=== PATIENT | female | born 1990 | race African-American/Black ===

== ENCOUNTER 2018-01-17 04:06 | Emergency (ER) | payer OTHER ==
[~2018-01-17] VITALS: Ht 172.7 cm; Wt 149.7 kg
--- NOTE | 2018-01-17 04:28 | PHYS DOC ---
Adult General Chief Complaint Chief Complaint: ABDOMINAL PAIN HPI HPI Patient is a 27-year-old female who presents with complaint of lower abdominal cramping and vaginal bleeding. Patient states that she started spotting on the of this month and was having some mild cramping at that time but then earlier this evening, she states that she started with a heavy flow with severe abdominal cramping that she rates at a 10 out of 10. Patient states that her last menstrual cycle was on December 19. She indicates that it is possible she could be . She states that nothing worsens or improves her symptoms. Patient also indicates that she had a total of 6 episodes of vomiting this evening. She denies any diarrhea and states that she has been having normal bowel movements. She denies any chest pain or shortness breath. She also denies any fever. Review of Systems Review of Systems Constitutional: Denies fever or chills [] Respiratory: Denies cough or shortness of breath [] Cardiovascular: Denies chest pain[] GI: Complains of lower abdominal cramping with nausea and vomiting[] : Reports vaginal bleeding[] Musculoskeletal: Denies back pain or joint pain [] All other systems were reviewed and found to be within normal limits, except as documented in this note. Current Medications Current Medications Current Medications Medications (Trade) Dose Ordered Sig/Katerin Start Time Stop Time Status Last Admin Dose Admin Fentanyl Citrate (Fentanyl 2ml Vial) 25 mcg PRN Q15MIN PRN 01/17/18 04:45 01/18/18 04:44 01/17/18 04:39 25 MCG Ondansetron HCl (Zofran) 4 mg 1X ONCE 01/17/18 04:45 01/17/18 04:46 DC 01/17/18 04:38 4 MG Sodium Chloride 1,000 ml @ 1,000 mls/hr Q1H 01/17/18 04:45 01/17/18 05:44 01/17/18 04:37 1,000 MLS/HR Allergies Allergies Allergies Coded Allergies Type Severity Reaction Last Updated Verified No Known Drug Allergies 01/17/18 No Physical Exam Physical Exam Constitutional: Well developed, well nourished, no acute distress, non-toxic appearance. [] HENT: Normocephalic, atraumatic, bilateral external ears normal, oropharynx moist, no oral exudates, nose normal. [] Eyes: PERRLA, EOMI, conjunctiva normal, no discharge. [] Neck: Normal range of motion, no tenderness, supple, no stridor. [] Cardiovascular:Heart rate regular rhythm, no murmur [] Lungs & Thorax: Bilateral breath sounds clear to auscultation [] Abdomen: Bowel sounds normal, soft, with suprapubic tenderness. [] Skin: Warm, dry, no erythema, no rash. [] Extremities: No tenderness, no cyanosis, no clubbing, ROM intact, no edema. [] Neurologic: Alert and oriented X 3, normal motor function, normal sensory function, no focal deficits noted. [] Current Patient Data Vital Signs Vital Signs Date Time Temp Pulse Resp B/P (MAP) Pulse Ox O2 Delivery O2 Flow Rate FiO2 01/17/18 04:39 12 01/17/18 04:15 97.8 84 163/82 (109) 98 Room Air 97.8 Lab Values Laboratory Tests Test 01/17/18 04:10 01/17/18 04:19 01/17/18 04:20 Urine Collection Type Unknown Urine Color Yellow Urine Clarity Clear Urine pH 5.5 Urine Specific [employer] [place] >=1.030 Urine Protein >=300 mg/dL (NEG-TRACE) Urine Glucose (UA) >=1000 mg/dL (NEG) Urine Ketones (Stick) Negative mg/dL (NEG) Urine Blood Large (NEG) Urine Nitrite Negative (NEG) Urine Bilirubin Negative (NEG) Urine Urobilinogen Dipstick 0.2 mg/dL (0.2 mg/dL) Urine Leukocyte Esterase Negative (NEG) Urine RBC Tntc /HPF (0-2) Urine WBC 1-4 /HPF (0-4) Urine Squamous Epithelial Cells Few /LPF Urine Bacteria Few /HPF (0-FEW) Urine Hyaline Casts Moderate /HPF Urine Mucus Mod /LPF POC Urine HCG, Qualitative Hcg negative (Negative) White Blood Count 8.0 x10^3/uL (4.0-11.0) Red Blood Count 4.91 x10^6/uL (3.50-5.40) Hemoglobin 14.5 g/dL (12.0-15.5) Hematocrit 43.2 % (36.0-47.0) Mean Corpuscular Volume 88 fL (79-100) Mean Corpuscular Hemoglobin 30 pg (25-35) Mean Corpuscular Hemoglobin Concent 34 g/dL (31-37) Red Cell Distribution Width 13.4 % (11.5-14.5) Platelet Count 274 x10^3/uL (140-400) Neutrophils (%) (Auto) 51 % (31-73) Lymphocytes (%) (Auto) 39 % (24-48) Monocytes (%) (Auto) 8 % (0-9) Eosinophils (%) (Auto) 2 % (0-3) Basophils (%) (Auto) 1 % (0-3) Neutrophils # (Auto) 4.1 x10^3uL (1.8-7.7) Lymphocytes # (Auto) 3.1 x10^3/uL (1.0-4.8) Monocytes # (Auto) 0.6 x10^3/uL (0.0-1.1) Eosinophils # (Auto) 0.1 x10^3/uL (0.0-0.7) Basophils # (Auto) 0.0 x10^3/uL (0.0-0.2) Sodium Level 136 mmol/L (136-145) Potassium Level 3.9 mmol/L (3.5-5.1) Chloride Level 100 mmol/L (98-107) Carbon Dioxide Level 28 mmol/L (21-32) Anion Gap 8 (6-14) Blood Urea Nitrogen 9 mg/dL (7-20) Creatinine 0.9 mg/dL (0.6-1.0) Estimated GFR (Cockcroft-Gault) 90.9 BUN/Creatinine Ratio 10 (6-20) Glucose Level 305 mg/dL (70-99) H Calcium Level 9.1 mg/dL (8.5-10.1) Total Bilirubin 0.2 mg/dL (0.2-1.0) Aspartate Amino Transferase (AST) 27 U/L (15-37) Alanine Aminotransferase (ALT) 51 U/L (14-59) Alkaline Phosphatase 113 U/L (46-116) Total Protein 7.9 g/dL (6.4-8.2) Albumin 3.8 g/dL (3.4-5.0) Albumin/Globulin Ratio 0.9 (1.0-1.7) L Laboratory Tests 01/17/18 04:20 Laboratory Tests 01/17/18 04:20 EKG EKG [] Radiology/Procedures Radiology/Procedures [] Course & Med Decision Making Course & Med Decision Making Pertinent Labs and Imaging studies reviewed. (See chart for details) [] Dragon Disclaimer Dragon Disclaimer This electronic medical record was generated, in whole or in part, using a voice recognition dictation system. Departure Departure Impression: Primary Impression: Dysmenorrhea Additional Impression: Nausea and vomiting Disposition: HOME, SELF-CARE Condition: STABLE Referrals: CYN GONZALEZ PA-C (PCP) Patient Instructions: Dysmenorrhea Additional Instructions: Take prescribed medication as directed and follow-up with your primary care provider in the next few days. Scripts Tramadol Hcl (TRAMADOL HCL) 50 Mg Tablet 50 MG PO Q6HRS PRN for PAIN, #12 TAB Prov: GEORGES BRIAN Jr. DO 01/17/18 Ondansetron Hcl (ZOFRAN) 4 Mg Tablet 4 MG PO PRN TID PRN for NAUSEA, #15 nausea/vomiting Prov: GEORGES BRIAN Jr. DO 01/17/18 Problem Qualifiers Additional Impression: Nausea and vomiting Vomiting type: unspecified Vomiting Intractability: non-intractable Qualified Codes: R11.2 - Nausea with vomiting, unspecified GEORGES BRIAN Jr. DO Jan 17, 2018 04:28
[2018-01-17 04:38] LABS: BILIRUBIN,URINE NEGATIVE (NEG); CLARITY,URINE CLEAR; COLOR,URINE YELLOW; NITRITE,URINE NEGATIVE (NEG); PH,URINE 5.5; PROTEIN,URINE >=300 mg/dL (NEG-TRACE); UROBILINOGEN,URINE 0.2 mg/dL (0.2 mg/dL)
[2018-01-17 04:41] LABS: BASO % 1 % (0-3); EOS # 0.1 x10^3/uL (0.0-0.7); EOS % 2 % (0-3); HEMATOCRIT 43.2 % (36.0-47.0); HEMOGLOBIN 14.5 g/dL (12.0-15.5); LYMPH # 3.1 x10^3/uL (1.0-4.8); LYMPH % 39 % (24-48); MEAN CORPUSCULAR HEMOGLOBIN 30 pg (25-35); MEAN CORPUSCULAR HGB CONC 34 g/dL (31-37); MEAN CORPUSCULAR VOLUME 88 fL (79-100); MONO # 0.6 x10^3/uL (0.0-1.1); MONO % 8 % (0-9); NEUT # 4.1 x10^3uL (1.8-7.7); NEUT % 51 % (31-73); PLATELET COUNT 274 x10^3/uL (140-400); RED BLOOD COUNT 4.91 x10^6/uL (3.50-5.40); RED CELL DISTRIBUTION WIDTH 13.4 % (11.5-14.5)
[2018-01-17] MEDS ORDERED: ONDANSETRON PF 4 MG/2 ML VIAL. IV ONE (04:45)
[2018-01-17] MEDS ORDERED: fentaNYL PF VIAL 100 MCG/2 ML VIAL IV PRN (04:45)
[2018-01-17] MEDS ORDERED: IV NORMAL SALINE 1000ML BAG 1,000 ML IV SCH (04:45)
[2018-01-17 04:51] LABS: CALCIUM 9.1 mg/dL (8.5-10.1); CREATININE 0.9 mg/dL (0.6-1.0); GFR 90.9; POTASSIUM 3.9 mmol/L (3.5-5.1)
[2018-01-17 04:53] LABS: BACTERIA,URINE FEW /HPF (0-FEW); HYALINE CASTS, URINE MODERATE /HPF; RBC,URINE TNTC /HPF (0-2); SQUAMOUS EPITHELIAL CELL,UR FEW /LPF
[2018-01-17 04:56] LABS: ALBUMIN 3.8 g/dL (3.4-5.0); ALBUMIN/GLOBULIN RATIO 0.9 (1.0-1.7); TOTAL BILIRUBIN 0.2 mg/dL (0.2-1.0); TOTAL PROTEIN 7.9 g/dL (6.4-8.2)
[2018-01-17] MEDS ORDERED: TRAM50TA PO (05:25)
[2018-01-17] MEDS ORDERED: ONDA4TAB7 PO (05:25)
[2018-01-17 05:30] VITALS: BP 156/74
== END 2018-01-17 05:30 | disposition home or self-care (01) ==
LOC: ER 04:06
DX: N94.6 Dysmenorrhea, unspecified (principal); R11.2 Nausea with vomiting, unspecified
CPT/HCPCS: 36415; 80053; 81001; 81025; 85025; 96361; 96374; 96375; 99284; J2405; J3010; J7030

== ENCOUNTER 2018-04-10 19:11 | Emergency (ER) | payer OTHER ==
[~2018-04-10] VITALS: Ht 172.7 cm; Wt 149.7 kg
[~2018-04-10 19:11] MED LIST: ONDA4TAB7 PO; TRAM50TA PO
[2018-04-10] MEDS ORDERED: IV NORMAL SALINE 1000ML BAG 1,000 ML IV ONE (19:30)
[2018-04-10] MEDS ORDERED: ONDANSETRON PF 4 MG/2 ML VIAL. IV ONE (19:30)
--- NOTE | 2018-04-10 19:32 | PHYS DOC ---
Past Medical History Past Medical History: Diabetes-Type II, Hypertension Past Surgical History: Other Additional Past Surgical Histo: R ovary removed Alcohol Use: Occasionally Drug Use: None Adult General Chief Complaint Chief Complaint: ABDOMINAL PAIN HPI HPI Patient is a 28 year old Female who presents with intermittent low mid abdominal sharp stabbing pain over the last 5 days. Patient states she had a bowel movement today that was normal for her. She has nausea but no vomiting. Patient's last visit. His March 13. States she ate potatoes today approximate 5 PM. Patient denies dysuria symptoms. She rates her pain 7 out of 10. 97.6, 79 heart rate, 176/80, 99% on room air. 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 Review of Systems Review of Systems Constitutional: Denies fever or chills [] Eyes: Denies change in visual acuity, redness, or eye pain [] HENT: Denies nasal congestion or sore throat [] Respiratory: Denies cough or shortness of breath [] Cardiovascular: No additional information not addressed in HPI [] GI: Lower abdominal pain, nausea. Denies vomiting, bloody stools or diarrhea [] : Denies dysuria or hematuria [] Musculoskeletal: Denies back pain or joint pain [] Integument: Denies rash or skin lesions [] Neurologic: Denies headache, focal weakness or sensory changes [] All other systems were reviewed and found to be within normal limits, except as documented in this note. Current Medications Current Medications Current Medications Medications (Trade) Dose Ordered Sig/Katerin Start Time Stop Time Status Last Admin Dose Admin Ondansetron HCl (Zofran) 4 mg 1X ONCE 04/10/18 19:30 04/10/18 19:31 DC 04/10/18 19:39 4 MG Sodium Chloride 1,000 ml @ 1,000 mls/hr 1X ONCE 04/10/18 19:30 04/10/18 20:29 04/10/18 19:39 1,000 MLS/HR Allergies Allergies Allergies Coded Allergies Type Severity Reaction Last Updated Verified No Known Drug Allergies 01/17/18 No Physical Exam Physical Exam Constitutional: Well developed, well nourished, no acute distress, non-toxic appearance. [] HENT: Normocephalic, atraumatic, bilateral external ears normal, oropharynx moist, no oral exudates, nose normal. [] Eyes: PERRLA, EOMI, conjunctiva normal, no discharge. [] Neck: Normal range of motion, no tenderness, supple, no stridor. [] Cardiovascular:Heart rate regular rhythm, no murmur [] Lungs & Thorax: Bilateral breath sounds clear to auscultation [] Abdomen: Bowel sounds normal, soft, mid lower tenderness, no masses, no pulsatile masses. [] Skin: Warm, dry, no erythema, no rash. [] Back: No tenderness, no CVA tenderness. [] Extremities: No tenderness, no cyanosis, no clubbing, ROM intact, no edema. [] Neurologic: Alert and oriented X 3, normal motor function, normal sensory function, no focal deficits noted. [] Psychologic: Affect normal, judgement normal, mood normal. [] Current Patient Data Vital Signs Vital Signs Date Time Temp Pulse Resp B/P (MAP) Pulse Ox O2 Delivery O2 Flow Rate FiO2 04/10/18 19:27 97.6 80 16 176/80 (112) 98 Room Air 97.6 Lab Values Laboratory Tests Test 04/10/18 19:15 04/10/18 19:24 04/10/18 19:26 Urine Collection Type Unknown Urine Color Yellow Urine Clarity Clear Urine pH 7.0 Urine Specific [place] >=1.030 Urine Protein 100 mg/dL (NEG-TRACE) Urine Glucose (UA) >=1000 mg/dL (NEG) Urine Ketones (Stick) Negative mg/dL (NEG) Urine Blood Trace (NEG) Urine Nitrite Negative (NEG) Urine Bilirubin Negative (NEG) Urine Urobilinogen Dipstick 1.0 mg/dL (0.2 mg/dL) Urine Leukocyte Esterase Negative (NEG) Urine RBC 11-20 /HPF (0-2) Urine WBC 20-40 /HPF (0-4) Urine Bacteria 0 /HPF (0-FEW) Urine Mucus Mod /LPF White Blood Count 9.4 x10^3/uL (4.0-11.0) Red Blood Count 4.74 x10^6/uL (3.50-5.40) Hemoglobin 14.1 g/dL (12.0-15.5) Hematocrit 41.2 % (36.0-47.0) Mean Corpuscular Volume 87 fL (79-100) Mean Corpuscular Hemoglobin 30 pg (25-35) Mean Corpuscular Hemoglobin Concent 34 g/dL (31-37) Red Cell Distribution Width 13.1 % (11.5-14.5) Platelet Count 291 x10^3/uL (140-400) Neutrophils (%) (Auto) 48 % (31-73) Lymphocytes (%) (Auto) 43 % (24-48) Monocytes (%) (Auto) 7 % (0-9) Eosinophils (%) (Auto) 1 % (0-3) Basophils (%) (Auto) 1 % (0-3) Neutrophils # (Auto) 4.5 x10^3uL (1.8-7.7) Lymphocytes # (Auto) 4.1 x10^3/uL (1.0-4.8) Monocytes # (Auto) 0.6 x10^3/uL (0.0-1.1) Eosinophils # (Auto) 0.1 x10^3/uL (0.0-0.7) Basophils # (Auto) 0.1 x10^3/uL (0.0-0.2) Sodium Level 139 mmol/L (136-145) Potassium Level 4.1 mmol/L (3.5-5.1) Chloride Level 102 mmol/L (98-107) Carbon Dioxide Level 27 mmol/L (21-32) Anion Gap 10 (6-14) Blood Urea Nitrogen 9 mg/dL (7-20) Creatinine 1.1 mg/dL (0.6-1.0) H Estimated GFR (Cockcroft-Gault) 71.6 BUN/Creatinine Ratio 8 (6-20) Glucose Level 273 mg/dL (70-99) H Calcium Level 8.9 mg/dL (8.5-10.1) Total Bilirubin 0.2 mg/dL (0.2-1.0) Aspartate Amino Transferase (AST) 17 U/L (15-37) Alanine Aminotransferase (ALT) 30 U/L (14-59) Alkaline Phosphatase 100 U/L (46-116) Total Protein 7.8 g/dL (6.4-8.2) Albumin 3.5 g/dL (3.4-5.0) Albumin/Globulin Ratio 0.8 (1.0-1.7) L Lipase 149 U/L (73-393) POC Urine HCG, Qualitative Hcg negative (Negative) Laboratory Tests 04/10/18 19:24 Laboratory Tests 04/10/18 19:24 EKG EKG [] Radiology/Procedures Radiology/Procedures [] Course & Med Decision Making Course & Med Decision Making Patient is a 28 year old Female who presents with intermittent low mid abdominal sharp stabbing pain over the last 5 days. Patient states she had a bowel movement today that was normal for her. She has nausea but no vomiting. Patient's last visit. His March 13. States she ate potatoes today approximate 5 PM. Patient denies dysuria symptoms. She rates her pain 7 out of 10. 97.6, 79 heart rate, 176/80, 99% on room air. 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 Skin is pink warm and dry. Abdomen is soft and slightly tender at the mid lower abdomen area. Patient denies any vaginal bleeding or abnormal vaginal discharge. Patient denies any chest pain or shortness of air or vomiting or diarrhea. Rate regular without murmur. Lungs are clear to auscultation in all lobes. Patient has no extremity swelling. Blood work is unremarkable. Urine shows infection. She'll be treated for urinary tract infection and to follow-up with her primary care as soon as possible. Dragon Disclaimer Dragon Disclaimer This electronic medical record was generated, in whole or in part, using a voice recognition dictation system. Departure Departure Impression: Primary Impression: Urinary tract infection Disposition: HOME, SELF-CARE Condition: STABLE Referrals: NO PCP (PCP) Patient Instructions: Urinary Tract Infection Additional Instructions: Take medications as prescribed. Follow-up with primary care. Scripts Cephalexin (KEFLEX) 500 Mg Capsule 1 CAP PO BID, #14 CAP Prov: COLT MONTES WIRE COILER 04/10/18 Problem Qualifiers Primary Impression: Urinary tract infection Urinary tract infection type: site unspecified Hematuria presence: with hematuria Qualified Codes: N39.0 - Urinary tract infection, site not specified ; R31.9 - Hematuria, unspecified COLT MONTES WIRE COILER Apr 10, 2018 19:32
[2018-04-10 19:35] LABS: BILIRUBIN,URINE NEGATIVE (NEG); CLARITY,URINE CLEAR; COLOR,URINE YELLOW; NITRITE,URINE NEGATIVE (NEG); PROTEIN,URINE 100 mg/dL (NEG-TRACE)
[2018-04-10 19:39] LABS: BASO # 0.1 x10^3/uL (0.0-0.2); BASO % 1 % (0-3); EOS # 0.1 x10^3/uL (0.0-0.7); EOS % 1 % (0-3); HEMATOCRIT 41.2 % (36.0-47.0); HEMOGLOBIN 14.1 g/dL (12.0-15.5); LYMPH # 4.1 x10^3/uL (1.0-4.8); LYMPH % 43 % (24-48); MEAN CORPUSCULAR HEMOGLOBIN 30 pg (25-35); MEAN CORPUSCULAR HGB CONC 34 g/dL (31-37); MEAN CORPUSCULAR VOLUME 87 fL (79-100); MONO # 0.6 x10^3/uL (0.0-1.1); MONO % 7 % (0-9); NEUT # 4.5 x10^3uL (1.8-7.7); NEUT % 48 % (31-73); PLATELET COUNT 291 x10^3/uL (140-400); RED BLOOD COUNT 4.74 x10^6/uL (3.50-5.40); RED CELL DISTRIBUTION WIDTH 13.1 % (11.5-14.5); WHITE BLOOD COUNT 9.4 x10^3/uL (4.0-11.0)
[2018-04-10 19:48] LABS: BACTERIA,URINE 0 /HPF (0-FEW); WBC,URINE 20-40 /HPF (0-4)
[2018-04-10 19:48] LABS: CALCIUM 8.9 mg/dL (8.5-10.1); CREATININE 1.1 mg/dL (0.6-1.0); GFR 71.6; POTASSIUM 4.1 mmol/L (3.5-5.1)
[2018-04-10 19:54] LABS: ALBUMIN 3.5 g/dL (3.4-5.0); ALBUMIN/GLOBULIN RATIO 0.8 (1.0-1.7); TOTAL BILIRUBIN 0.2 mg/dL (0.2-1.0); TOTAL PROTEIN 7.8 g/dL (6.4-8.2)
[2018-04-10] MEDS ORDERED: CEPH-264 PO (20:05)
[2018-04-10 20:13] VITALS: BP 174/90
== END 2018-04-10 20:18 | disposition home or self-care (01) ==
LOC: ER 19:11
DX: N39.0 Urinary tract infection, site not specified (principal); E11.9 Type 2 diabetes mellitus without complications; I10 Essential (primary) hypertension
CPT/HCPCS: 36415; 80053; 81001; 81025; 83690; 85025; 96374; 99284; J2405; J7030

== ENCOUNTER → 2018-05-22 | Outpatient (CLI) | payer OTHER ==
[~2018-05-22] MED LIST changes: +CEPH-264 PO
[2018-05-22 14:41] LABS: BASO # 0.1 x10^3/uL (0.0-0.2); BASO % 1 % (0-3); EOS # 0.1 x10^3/uL (0.0-0.7); EOS % 2 % (0-3); HEMATOCRIT 41.8 % (36.0-47.0); HEMOGLOBIN 14.3 g/dL (12.0-15.5); LYMPH # 3.8 x10^3/uL (1.0-4.8); LYMPH % 46 % (24-48); MEAN CORPUSCULAR HEMOGLOBIN 30 pg (25-35); MEAN CORPUSCULAR HGB CONC 34 g/dL (31-37); MEAN CORPUSCULAR VOLUME 86 fL (79-100); MONO # 0.4 x10^3/uL (0.0-1.1); MONO % 5 % (0-9); NEUT # 3.9 x10^3uL (1.8-7.7); NEUT % 47 % (31-73); PLATELET COUNT 301 x10^3/uL (140-400); RED BLOOD COUNT 4.83 x10^6/uL (3.50-5.40); RED CELL DISTRIBUTION WIDTH 13.1 % (11.5-14.5); WHITE BLOOD COUNT 8.4 x10^3/uL (4.0-11.0)
[2018-05-22 14:47] LABS: U PREG PATIENT NEGATIVE (NEG)
[2018-05-22 15:11] LABS: CALCIUM 8.3 mg/dL (8.5-10.1); CREATININE 0.8 mg/dL (0.6-1.0); GFR 103.3; POTASSIUM 3.9 mmol/L (3.5-5.1)
[2018-05-22 15:12] LABS: CHOLESTEROL/HDL RATIO 4.9
[2018-05-22 20:10] LABS: HEMOGLOBIN A1C 10.5 % (4.8-5.6)
== END | disposition home or self-care (01) ==
LOC: LAB 14:09
PROVIDERS: ATTEND Family Medicine
DX: Z00.00 Encounter for general adult medical examination without abnormal findings (principal); Z20.2 Contact with and (suspected) exposure to infections with a predominantly sexual mode of transmission; Z68.43 Body mass index [BMI] 50.0-59.9, adult; Z86.39 Personal history of other endocrine, nutritional and metabolic disease
CPT/HCPCS: 36415; 80048; 80061; 81025; 82043; 83036; 84443; 85025; 86592; 86703; 86705; 86709; 86803; 87340; 87491; 87591

== ENCOUNTER 2018-06-25 19:24 | Emergency (ER) | payer OTHER ==
[~2018-06-25] VITALS: Ht 172.7 cm; Wt 149.7 kg
[2018-06-25 20:15] VITALS: BP 164/72
--- NOTE | 2018-06-25 20:29 | PHYS DOC ---
Past Medical History Past Medical History: Diabetes-Type II, Hypertension Past Surgical History: Other Additional Past Surgical Histo: R ovary removed Alcohol Use: Occasionally Drug Use: None Adult General Chief Complaint Chief Complaint: CHEST WALL PAIN HPI HPI Patient is an obese 28 yo female w/ HTN and DM who presents with complaint of of chest wall pain for 1 week. Patient notes that 1 week ago she began having a dry cough, sinus pressure and green nasal drainage. She reports the symptoms resolved with mucinex, however the cough has persisted. She is now complaining of sharp pain in her chest w/ coughing and deep breaths. She denies having fevers, abdominal pain, bowel or bladder symptoms, or headache. She does admit to smoking and occasional marijuana use but denies etoh use. She has received a flu shot this year. Her LMP was in March, however she declined taking a test today because she is on the depot shot and is confident that she is not . Her primary care provider is Asuncion Parks. Patient recently had lab work completed which revealed HbA1c to be 10. Review of Systems Review of Systems Constitutional: Denies fever or chills [] Eyes: Denies change in visual acuity, redness, or eye pain [] HENT: Admits nasal congestion. Denies sore throat Respiratory: Admits cough. Admits feeling short of breath. Cardiovascular: Admits chest wall pain. Denies palpitations GI: Denies abdominal pain, nausea, vomiting, bloody stools or diarrhea [] : Denies dysuria or hematuria [] Musculoskeletal: Denies back pain or joint pain [] Integument: Denies rash or skin lesions [] Complete systems were reviewed and found to be within normal limits, except as documented in this note. Current Medications Current Medications Current Medications Medications (Trade) Dose Ordered Sig/[facility] Start Time Stop Time Status Last Admin Dose Admin Dexamethasone (Decadron) 10 mg 1X ONCE 06/25/18 21:00 06/25/18 21:00 DC 06/25/18 20:37 10 MG Allergies Allergies Allergies Coded Allergies Type Severity Reaction Last Updated Verified No Known Drug Allergies 01/17/18 No Physical Exam Physical Exam Constitutional: Obese, no acute distress, nontoxic appearing HENT: Normocephalic, atraumatic, bilateral external ears normal, oropharynx moist, no oral exudates, nose normal. [] Eyes: PERRLA, EOMI, conjunctiva normal, no discharge. [] Neck: Normal range of motion, no tenderness, supple Cardiovascular:Heart rate regular rhythm, no murmur [] Lungs & Thorax: Bilateral breath sounds clear to auscultation; hyperkeratosis present on neck and back. No pain w/ palpation of chest wall. Abdomen: Bowel sounds normal, soft, no tenderness Skin: Warm, dry, no erythema, no rash. [] Current Patient Data Vital Signs Vital Signs Date Time Temp Pulse Resp B/P (MAP) Pulse Ox O2 Delivery O2 Flow Rate FiO2 06/25/18 20:15 86 18 164/72 (102) 99 Room Air 06/25/18 19:25 97.9 97.9 EKG EKG [[@1931; HR 80, normal sinus rhythm]] Radiology/Procedures Radiology/Procedures ED preliminary read of CXR: No acute cardiopulmonary process. Course & Med Decision Making Course & Med Decision Making Patient is an obese 28 yo female who presents with complaint of chest wall pain when coughing or taking a deep breath. Patient reports she had cold symptoms last week and although they have mostly resolved the chest wall pain and dry cough have persisted. Patient's vitals were unremarkable. On physical exam lung sounds were present and clear bilaterally. EKG shows HR 80 normal sinus rhythm. Chest xray unremarkable for acute cardiopulmonary process. Discussed with patient that she likely has bronchitis. Also discussed with patient that a dose of dexamethasone will likely help decrease inflammation and help alleviate symptoms earlier, but that the steroid may cause her blood sugar to increase. Patient voiced understanding and stated that she would like to receive the dexamethasone. Gave the patient one dose and counseled her to continue to monitor her blood sugar and PO intake carefully. Dischaged patient home with azithromycin and inhaler for relief of symptoms. Patient stable for discharge with outpatient follow-up with PCP (Asuncion Parks). Discussed findings and plan with patient and family, who acknowledge understanding and agreement. Dragon Disclaimer Dragon Disclaimer This electronic medical record was generated, in whole or in part, using a voice recognition dictation system. Departure Departure Impression: Primary Impression: Bronchitis Disposition: 01 HOME, SELF-CARE Condition: STABLE Referrals: ANDREW PARKS MD (PCP) Patient Instructions: Acute Bronchitis, [id number] Scripts Albuterol Sulfate (Proair Hfa) 8.5 Gm Hfa.aer.ad 1 PUFF INH PRN Q6HRS PRN for WHEEZING, #1 INHALER Prov: TEMI PEREIRA DO 06/25/18 Azithromycin (ZITHROMAX) 250 Mg Tablet 1 PKG PO UD for bronchitis, #6 TAB Take 2 tablets on day 1 and then 1 tablet each day for the next 4 days as directed Prov: TEMI PEREIRA DO 06/25/18 TEMI PEREIRA DO Jun 25, 2018 20:29
[2018-06-25] MEDS ORDERED: ALBU2.5V8 INH (20:32)
[2018-06-25] MEDS ORDERED: AZIT250T PO (20:32)
[2018-06-25] MEDS: DEXAMETHASONE 4 MG TABLET PO ONE (20:37)
--- NOTE | 2018-06-25 21:08 | RAD ---
CHEST PA LATERAL CLINICAL INDICATION: Short of breath and cough today COMPARISON: None FINDINGS: Heart is normal in size. Prominent bilateral central bronchial markings. No focal consolidation. No pneumothorax or pleural effusion. Visualized bony thorax within normal limits. IMPRESSION: Findings suggests mild bronchitis. Electronically signed by: Jerrod Barbosa DO (06/25/2018 9:04 PM) [facility]
--- NOTE | 2018-06-26 01:17 | EKG ---
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
== END 2018-06-25 20:35 | disposition home or self-care (01) ==
LOC: ER 19:24
DX: J40 Bronchitis, not specified as acute or chronic (principal); L57.0 Actinic keratosis; E11.9 Type 2 diabetes mellitus without complications; I10 Essential (primary) hypertension; E66.9 Obesity, unspecified; Z68.43 Body mass index [BMI] 50.0-59.9, adult; F17.200 Nicotine dependence, unspecified, uncomplicated; F12.90 Cannabis use, unspecified, uncomplicated
CPT/HCPCS: 71046; 93005; 99283; J8540

== ENCOUNTER → 2018-12-30 | Outpatient (CLI) | payer OTHER ==
[~2018-12-30] MED LIST changes: +ALBU2.5V8 INH; +AZIT250T PO
[2018-12-31 00:07] LABS: HEMOGLOBIN A1C 10.3 % (4.8-5.6)
== END | disposition home or self-care (01) ==
LOC: LAB 09:21
PROVIDERS: ATTEND Family Medicine
DX: E11.65 Type 2 diabetes mellitus with hyperglycemia (principal)
CPT/HCPCS: 36415; 83036

== ENCOUNTER 2019-05-18 12:44 | Emergency (ER) | payer OTHER ==
[~2019-05-18] VITALS: Ht 172.7 cm; Wt 149.7 kg
[2019-05-18 13:00] VITALS: BP 168/79
--- NOTE | 2019-05-18 13:19 | RAD ---
Examination: 3 views of the left index finger COMPARISON: None available HISTORY: History of injury Findings/ impression: Subtle cortical step-off identified midportion of the distal phalanx of the second digit seen only on the lateral view could be artifactual or nondisplaced fracture. Correlate for point tenderness. The alignment of the PIP, DIP joints grossly appears unremarkable. Electronically signed by: Quinton Shoemaker MD (05/18/2019 1:16 PM) [id number]
[2019-05-18] MEDS ORDERED: HYDR-3164 PO (13:51)
[2019-05-18] MEDS ORDERED: VALA1000 PO (13:51)
--- NOTE | 2019-05-18 13:51 | PHYS DOC ---
Past Medical History Past Medical History: Diabetes-Type II, Hypertension Past Surgical History: Other Additional Past Surgical Histo: R ovary removed Alcohol Use: Occasionally Drug Use: None Adult General Chief Complaint Chief Complaint: FINGER INJURY HPI HPI Patient is a 29 year old female with history of diabetes type 2, hypertension, who presents to the ED today complaining of moderate pain to the left index finger that began this morning after she accidentally slammed her left index finger in the car door. Patient is right-handed. Patient states the pain is worse on touching the finger. Denies anything specifically relieving the pain. She is also requesting acyclovir for herpes break out. Review of Systems Review of Systems Constitutional: Denies fever or chills [] ] Female -herpes outbreak : Denies dysuria or hematuria [] Musculoskeletal: Left index finger injury Integument: Denies rash or skin lesions [] Neurologic: Denies headache, focal weakness or sensory changes [] All other systems were reviewed and found to be within normal limits, except as documented in this note. Allergies Allergies Allergies Coded Allergies Type Severity Reaction Last Updated Verified No Known Drug Allergies 01/17/18 No Physical Exam Physical Exam Constitutional: Well developed, well nourished, no acute distress, non-toxic appearance. [] Abdomen: Bowel sounds normal, soft, no tenderness, no masses, no pulsatile masses. [] Skin: Warm, dry, no erythema, no rash. [] Back: No tenderness, no CVA tenderness. [] Extremities: Distal end of the left index finger with slight swelling, the subungual hematoma on the left index finger proximal end approximately 20% right now. There is moderate tenderness on palpation of the distal end of the left index finger. Full range of motion to the left index finger MIP PIP and DIP joints. Adequate radius sensation to the left index finger. +2 left radial pulse. Cap refill less than 2 seconds the left index finger. Neurologic: Alert and oriented X 3, normal motor function, normal sensory function, no focal deficits noted. [] Psychologic: Affect normal, judgement normal, mood normal. [] Current Patient Data Vital Signs Vital Signs Date Time Temp Pulse Resp B/P (MAP) Pulse Ox O2 Delivery O2 Flow Rate FiO2 05/18/19 13:00 98.0 79 18 168/79 (108) 97 Room Air 98.0 EKG EKG [] Radiology/Procedures Radiology/Procedures []PROCEDURE: FINGER(S) LEFT Examination: 3 views of the left index finger COMPARISON: None available HISTORY: History of injury Findings/ impression: Subtle cortical step-off identified midportion of the distal phalanx of the second digit seen only on the lateral view could be artifactual or nondisplaced fracture. Correlate for point tenderness. The alignment of the PIP, DIP joints grossly appears unremarkable. Electronically signed by: Quinton Shoemaker MD (05/18/2019 1:16 PM) [id number] DICTATED and SIGNED BY: QUINTON SHOEMAKER MD DATE: 05/18/19 1316 Course & Med Decision Making Course & Med Decision Making Pertinent Labs and Imaging studies reviewed. (See chart for details) This is a 29-year-old female patient presenting to the ED today for left index finger pain. She accidentally slammed it in a car door. Left index finger x-rays interpreted by radiologist were noted for-subtle cortical step-off identified midportion of the distal phalanx of the second digit seen only on the lateral view could be artifactual or nondisplaced fracture. Correlate for point tenderness. Patient does have pain to this area being mentioned on x-ray. She was placed in a finger splint by the ED RN, neurovascular exam is intact. Ice elevation encouraged. Follow-up with orthopedic doctor.She was also given acyclovir for her herpes outbreak Dragon Disclaimer Dragon Disclaimer This electronic medical record was generated, in whole or in part, using a voice recognition dictation system. Departure Departure Impression: Primary Impression: Fracture of distal phalanx of index finger Additional Impression: Herpes simplex virus (HSV) infection of vagina Disposition: 01 HOME, SELF-CARE Condition: STABLE Referrals: NO PCP (PCP) ZONIA RODRÍGUEZ MD follow up in the next 2 days Patient Instructions: Finger Fracture (Phalangeal)-SportsMed Additional Instructions: You were evaluated in the emergency room for left index finger injury, your x- ray shows you could've broken this finger. Please contact the orthopedic doctor on your discharge paperwork in the course of this week and set up a follow-up appointment. Try to ice and elevate the extremity. Scripts Hydrocodone/Apap 5-325 (NORCO 5-325 TABLET) 1 Each Tablet 1 TAB PO Q6HRS, #20 TAB Prov: MUTUNGALUI [employer] 05/18/19 Valacyclovir Hcl (VALACYCLOVIR) 1,000 Mg Tablet 1 TAB PO DAILY, #7 TAB Prov: LUI RIVER APRN 05/18/19 Problem Qualifiers Primary Impression: Fracture of distal phalanx of index finger Encounter type: initial encounter Fracture type: closed Fracture alignment: nondisplaced Laterality: left Qualified Codes: S62.661A - Nondisplaced fracture of distal phalanx of left index finger, initial encounter for closed fracture LUI RIVER APRN May 18, 2019 13:51
== END 2019-05-18 14:04 | disposition home or self-care (01) ==
LOC: ER 12:44
DX: S62.661A Nondisplaced fracture of distal phalanx of left index finger, initial encounter for closed fracture (principal); A60.00 Herpesviral infection of urogenital system, unspecified; E11.9 Type 2 diabetes mellitus without complications; I10 Essential (primary) hypertension; Z98.890 Other specified postprocedural states; W23.0XXA Caught, crushed, jammed, or pinched between moving objects, initial encounter; Y93.89 Activity, other specified; Y92.89 Other specified places as the place of occurrence of the external cause; Y99.8 Other external cause status
CPT/HCPCS: 29130; 73140; 99284

== ENCOUNTER → 2019-08-12 | Outpatient (CLI) | payer OTHER ==
[~2019-08-12] MED LIST changes: +HYDR-3164 PO; +VALA10008 PO
[2019-08-12 08:26] LABS: BASO % 1 % (0-3); EOS # 0.1 x10^3/uL (0.0-0.7); EOS % 1 % (0-3); HEMATOCRIT 43.7 % (36.0-47.0); HEMOGLOBIN 14.7 g/dL (12.0-15.5); LYMPH # 3.2 x10^3/uL (1.0-4.8); LYMPH % 43 % (24-48); MEAN CORPUSCULAR HEMOGLOBIN 29 pg (25-35); MEAN CORPUSCULAR HGB CONC 34 g/dL (31-37); MEAN CORPUSCULAR VOLUME 85 fL (79-100); MONO # 0.5 x10^3/uL (0.0-1.1); MONO % 7 % (0-9); NEUT # 3.5 x10^3/uL (1.8-7.7); NEUT % 48 % (31-73); PLATELET COUNT 259 x10^3/uL (140-400); RED BLOOD COUNT 5.12 x10^6/uL (3.50-5.40); RED CELL DISTRIBUTION WIDTH 13.3 % (11.5-14.5); WHITE BLOOD COUNT 7.3 x10^3/uL (4.0-11.0)
[2019-08-12 09:00] LABS: ALBUMIN 3.2 g/dL (3.4-5.0); ALBUMIN/GLOBULIN RATIO 0.9 (1.0-1.7); CALCIUM 8.5 mg/dL (8.5-10.1); CREATININE 0.7 mg/dL (0.6-1.0); GFR 119.7; TOTAL BILIRUBIN 0.6 mg/dL (0.2-1.0); TOTAL PROTEIN 6.9 g/dL (6.4-8.2)
[2019-08-12 09:02] LABS: CHOLESTEROL/HDL RATIO 3.8
[2019-08-12 20:07] LABS: HEMOGLOBIN A1C 12.1 % (4.8-5.6)
== END | disposition home or self-care (01) ==
LOC: LAB 07:44
PROVIDERS: ATTEND Nurse Practitioner Gerontology
DX: E11.65 Type 2 diabetes mellitus with hyperglycemia (principal)
CPT/HCPCS: 36415; 80053; 80061; 83036; 85025

== ENCOUNTER → 2020-01-25 | Outpatient (CLI) | payer OTHER | END | disposition home or self-care (01) | LOC: LAB 10:04 | PROVIDERS: ATTEND Internal Medicine Pulmonary Disease | DX: Z20.828 Contact with and (suspected) exposure to other viral communicable diseases (principal) | CPT/HCPCS: U0003-CS ==

== ENCOUNTER 2020-02-01 15:09 | Emergency (ER) | payer OTHER ==
[~2020-02-01] VITALS: Ht 172.7 cm; Wt 150.0 kg
[2020-02-01] MEDS ORDERED: fentaNYL PF VIAL 100 MCG/2 ML VIAL IVP ONE (16:15)
--- NOTE | 2020-02-01 16:31 | PHYS DOC ---
Past Medical History Past Medical History: Diabetes-Type II, Hypertension Past Surgical History: Other Additional Past Surgical Histo: R ovary removed Smoking Status: Former Smoker Alcohol Use: Occasionally Drug Use: None General Adult EDM: Chief Complaint: BACK PAIN OR INJURY HPI: HPI: Patient is a 29 year old female who presents with for the last 2 to 3 days she states she has been having fatigue and bilateral upper and lower back pain. 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 She states that she does do some heavy lifting. She states there is no sharp shooting pain radiating from the pain down her legs. She is currently on her menstrual period. She states on Friday she had a negative cover test. She has a history of hypertension and diabetes and a right ovary removed. She states that she is not taking any medications. She states that the pain is worse with movement and lifting her arms. She states if she sits a certain way or if she lays down it is painful. There is tenderness all over her back bilaterally with palpation. There is focal bony spinal tenderness also. She states that sharp and shooting. She rates her pain a 10 out of 10. She is tearful. Patient denies loss of bowel bladder, numbness or tingling, focal weaknesses, dizziness, headache, fever, cough, abdominal pain, nausea, vomiting, diarrhea, dysuria symptoms, chest pain, shortness of air. Review of Systems: Review of Systems: Constitutional: Denies fever or chills. Fatigue. [] Eyes: Denies change in visual acuity. [] HENT: Denies nasal congestion or sore throat. [] Respiratory: Denies cough or shortness of breath. [] Cardiovascular: Denies chest pain or edema. [] GI: Denies abdominal pain, nausea, vomiting, bloody stools or diarrhea. [] : Denies dysuria. [] Musculoskeletal: Bilateral upper and lower back pain or joint pain. [] Integument: Denies rash. [] Neurologic: Denies headache, focal weakness or sensory changes. [] Endocrine: Denies polyuria or polydipsia. [] Lymphatic: Denies swollen glands. [] Psychiatric: Denies depression or anxiety. [] Heart Score: Risk Factors: Risk Factors: DM, Current or recent (<one month) smoker, HTN, HLP, family history of CAD, obesity. Risk Scores: Score 0 - 3: 2.5% MACE over next 6 weeks - Discharge Home Score 4 - 6: 20.3% MACE over next 6 weeks - Admit for Clinical Observation Score 7 - 10: 72.7% MACE over next 6 weeks - Early Invasive Strategies Current Medications: Current Medications Medications (Trade) Dose Ordered Sig/Katerin Start Time Stop Time Status Last Admin Dose Admin Fentanyl Citrate (Fentanyl 2ml Vial) 50 mcg 1X ONCE 02/01/20 16:15 02/01/20 16:16 DC Allergies: Allergies: Allergies Coded Allergies Type Severity Reaction Last Updated Verified No Known Drug Allergies 01/17/18 No Physical Exam: PE: Constitutional: Well developed, well nourished, no acute distress, non-toxic appearance. [] HENT: Normocephalic, atraumatic, bilateral external ears normal, oropharynx moist, no oral exudates, nose normal. [] Eyes: PERRLA, EOMI, conjunctiva normal, no discharge. [] Neck: Normal range of motion, no tenderness, supple, no stridor. [] Cardiovascular:Heart rate regular rhythm, no murmur [] Lungs & Thorax: Bilateral breath sounds clear to auscultation [] Abdomen: Bowel sounds normal, soft, no tenderness, no masses, no pulsatile masses. [] Skin: Warm, dry, no erythema, no rash. [] Back: Bilateral upper and lower tenderness, no CVA tenderness. [] Extremities: No tenderness, no cyanosis, no clubbing, ROM intact, no edema. [] Neurologic: Alert and oriented X 3, normal motor function, normal sensory function, no focal deficits noted. [] Psychologic: Affect normal, judgement normal, mood normal. [] Current Patient Data: Vital Signs: Vital Signs Date Time Temp Pulse Resp B/P (MAP) Pulse Ox O2 Delivery O2 Flow Rate FiO2 02/01/20 16:00 81 174/122 (139) 98 Room Air EKG: EK and read by Dr Carrera as Sinus Rhythm and no STEMI [] Radiology/Procedures: Radiology/Procedures: [] Impression: [facility] [address] [place] [address] IMAGING REPORT Signed PATIENT: YG HEMPHILL CACCOUNT: [id number] : 1990 LOCATION: ER AGE: 29 SEX: F EXAM STATUS: REG ER ORD. PHYSICIAN: COLT MONTES APRN REASON: Injury, PAIN PROCEDURE: LUMBAR SPINE MIN 4V EXAM: AP, lateral and lumbosacral spot views With a synovial of the lumbar spine DATE: 02/01/2020 5:41 PM INDICATION: Reason: Injury, PAIN / Spl. Instructions: / History: COMPARISON: No Prior FINDINGS: 5 nonrib-bearing lumbar-type vertebral bodies. Vertebral body heights are preserved. Disc heights are grossly preserved. On the oblique views, no definite pars defects are seen. No significant facet degenerative changes. No spondylolisthesis. IMPRESSION: 1. Negative acute fracture or subluxation. Electronically signed by: Aneudy Pride MD (02/01/2020 6:43 PM) DOUG DICTATED and SIGNED BY: ANEUDY PRIDE MD DATE: 02/01/20 1843 [facility] [address] [place], [place] [id number] IMAGING REPORT Signed PATIENT: YG HEMPHILL CACCOUNT: [id number] : 1990 LOCATION: ER AGE: 29 SEX: F EXAM STATUS: REG ER ORD. PHYSICIAN: COLT MONTES APRN REASON: Injury, PAIN PROCEDURE: THORACIC SPINE 3V Exam: Thoracic spine Date: 02/01/2020 5:41 PM CLINICAL HISTORY: Reason: Injury, PAIN / Spl. Instructions: / History: COMPARISON: None available. FINDINGS: AP and lateral/swimmers views of the thoracic spine submitted. There is severe superimposed artifact at the cervical thoracic junction on the lateral view per techniques. Exam shows preserved disc height throughout. Negative degenerative/proliferative changes. Negative compression fracture. Negative malalignment. Negative focal paraspinal line deviation/hematoma. IMPRESSION: Evaluation of the thoracic spine, particularly the upper thoracic spine is markedly limited by overlying structures or motion artifact. Within these constraints no acute fracture or subluxation. Electronically signed by: Aneudy Pride MD (02/01/2020 6:42 PM) DOUG DICTATED and SIGNED BY: ANEUDY PRIDE MD DATE: 02/01/20 184 Course & Med Decision Making: Course & Med Decision Making Pertinent Labs and Imaging studies reviewed. (See chart for details) See HPI. Alert and oriented x4. Ambulatory with a steady gait. Speaks in full complete sentences. Skin pink warm and dry. Moving all extremities equally with equal strengths. No saddle paresthesia. Blood work is unremarkable. Urinalysis shows no infection. Due to patient's symptoms and increased with movement this is likely musculoskeletal pain. Patient will be discharged with pain medication and muscle relaxer. [] Dragon Disclaimer: Dragon Disclaimer: This electronic medical record was generated, in whole or in part, using a voice recognition dictation system. Departure Departure Impression: Primary Impression: Back pain Qualified Codes: M54.9 - Dorsalgia, unspecified Disposition: HOME, SELF-CARE Condition: STABLE Referrals: NO PCP (PCP) Patient Instructions: Back Pain, Adult, Low Back Strain with Rehab-SportsMed Additional Instructions: Follow up with primary care provider. Take medications as prescribed and with food. Drink plenty of fluids. Remember this medication will make you sleepy so do not drive or drink with this medication. Scripts Orphenadrine Citrate (ORPHENADRINE CITRATE) 100 Mg Tablet.er 1 TAB PO BID, #14 TAB Prov: COLT MONTES APRN 02/01/20 Hydrocodone/Apap 5-325 (NORCO 5-325 TABLET) 1 Each Tablet 1 TAB PO PRN Q6HRS PRN for PAIN, #10 TAB 0 Refills Prov: COLT MONTES APRN 02/01/20 Ibuprofen (IBUPROFEN) 600 Mg Tablet 600 MG PO PRN Q6HRS PRN for INFLAMMATION, #20 TAB Prov: COLT MONTES APRN 02/01/20 Justicifation of Admission Dx: Justifications for Admission: Justification of Admission Dx: N/A COLT MONTES APRN Feb 01, 2020 16:31
[2020-02-01 17:16] LABS: ALBUMIN 3.3 g/dL (3.4-5.0); ALBUMIN/GLOBULIN RATIO 0.8 (1.0-1.7); CALCIUM 8.7 mg/dL (8.5-10.1); CREATININE 0.8 mg/dL (0.6-1.0); GFR 102.6; POTASSIUM 3.7 mmol/L (3.5-5.1); TOTAL BILIRUBIN 0.4 mg/dL (0.2-1.0); TOTAL PROTEIN 7.2 g/dL (6.4-8.2)
[2020-02-01] MEDS ORDERED: KETOROLAC 30 MG/ML VIAL. IVP ONE (17:45)
[2020-02-01] MEDS ORDERED: ORPHENADRINE CITRATE 60 MG/2 ML VIAL. IM ONE (17:45)
[2020-02-01] MEDS ORDERED: IV NORMAL SALINE 1000ML BAG 1,000 ML IV ONE (17:45)
[2020-02-01 18:12] LABS: BILIRUBIN,URINE NEGATIVE (NEG); CLARITY,URINE CLEAR; COLOR,URINE RED; NITRITE,URINE NEGATIVE (NEG); PH,URINE 8.5 (<5.0-8.0); PROTEIN,URINE 100 mg/dL (NEG-TRACE)
[2020-02-01 18:13] LABS: BACTERIA,URINE FEW /HPF (0-FEW); BASO # 0.1 x10^3/uL (0.0-0.2); BASO % 1 % (0-3); EOS # 0.1 x10^3/uL (0.0-0.7); EOS % 2 % (0-3); HEMATOCRIT 45.1 % (36.0-47.0); HEMOGLOBIN 15.1 g/dL (12.0-15.5); LYMPH # 2.6 x10^3/uL (1.0-4.8); LYMPH % 37 % (24-48); MEAN CORPUSCULAR HEMOGLOBIN 29 pg (25-35); MEAN CORPUSCULAR HGB CONC 34 g/dL (31-37); MEAN CORPUSCULAR VOLUME 87 fL (79-100); MONO # 0.4 x10^3/uL (0.0-1.1); MONO % 6 % (0-9); NEUT # 3.9 x10^3/uL (1.8-7.7); NEUT % 55 % (31-73); PLATELET COUNT 260 x10^3/uL (140-400); RBC,URINE TNTC /HPF (0-2); RED BLOOD COUNT 5.16 x10^6/uL (3.50-5.40); RED CELL DISTRIBUTION WIDTH 13.2 % (11.5-14.5); SQUAMOUS EPITHELIAL CELL,UR FEW /LPF
--- NOTE | 2020-02-01 18:45 | RAD ---
Exam: Thoracic spine Date: 02/01/2020 5:41 PM CLINICAL HISTORY: Reason: Injury, PAIN / Spl. Instructions: / History: COMPARISON: None available. FINDINGS: AP and lateral/swimmers views of the thoracic spine submitted. There is severe superimposed artifact at the cervical thoracic junction on the lateral view per techniques. Exam shows preserved disc height throughout. Negative degenerative/proliferative changes. Negative compression fracture. Negative malalignment. Negative focal paraspinal line deviation/hematoma. IMPRESSION: Evaluation of the thoracic spine, particularly the upper thoracic spine is markedly limited by overlying structures or motion artifact. Within these constraints no acute fracture or subluxation. Electronically signed by: Aneudy Nath MD (02/01/2020 6:42 PM) DOUG
--- NOTE | 2020-02-01 18:46 | RAD ---
EXAM: AP, lateral and lumbosacral spot views With a synovial of the lumbar spine DATE: 02/01/2020 5:41 PM INDICATION: Reason: Injury, PAIN / Spl. Instructions: / History: COMPARISON: No Prior FINDINGS: 5 nonrib-bearing lumbar-type vertebral bodies. Vertebral body heights are preserved. Disc heights are grossly preserved. On the oblique views, no definite pars defects are seen. No significant facet degenerative changes. No spondylolisthesis. IMPRESSION: 1. Negative acute fracture or subluxation. Electronically signed by: Aneudy Nath MD (02/01/2020 6:43 PM) DOUG
[2020-02-01 19:17] LABS: PROTHROMBIN TIME PATIENT 12.8 SEC (11.7-14.0)
[2020-02-01] MEDS ORDERED: ORPH100T PO (19:20)
[2020-02-01] MEDS ORDERED: HYDR-3164 PO (19:20)
[2020-02-01] MEDS ORDERED: IBUP-1007 PO (19:20)
[2020-02-01 19:30] VITALS: BP 151/88
--- NOTE | 2020-02-02 04:09 | EKG ---
[facility] [address] [place] [address] Test Date: 2020-02-01 Test Time: 16:53:29 Pat Name: YG HEMPHILL Department: Room: Gender: F Parliamentary Counsel: : 1990 Requested By: COLT MONTES Order Number: [id number] Reading MD: Measurements Intervals [place] Rate: 76 P: 40 [place]: 200 QRS: 25 QRSD: 86 T: 38 QT: 374 QTc: 425 Interpretive Statements SINUS RHYTHM NORMAL ECG RI6.02 No previous ECG available for comparison
== END 2020-02-01 19:34 | disposition home or self-care (01) ==
LOC: ER 15:09
DX: M54.5 Low back pain (principal); R53.83 Other fatigue; E11.9 Type 2 diabetes mellitus without complications; I10 Essential (primary) hypertension; Z87.891 Personal history of nicotine dependence; Z98.890 Other specified postprocedural states
CPT/HCPCS: 36415; 72072; 72110; 80053; 81001; 81025; 84484; 85025; 85610; 93005; 96372; 96374; 96375; 99285; J1885; J2360; J3010

== ENCOUNTER 2020-02-22 13:21 | Emergency (ER) | payer OTHER ==
[~2020-02-22] VITALS: Ht 172.7 cm; Wt 150.0 kg
[~2020-02-22 13:21] MED LIST changes: +IBUP-1007 PO; +ORPH100T PO
[2020-02-22] MEDS ORDERED: MUPI15CR8 TP (13:50)
[2020-02-22] MEDS ORDERED: CEPH-264 PO (13:50)
--- NOTE | 2020-02-22 13:50 | PHYS DOC ---
Past Medical History Past Medical History: Diabetes-Type II, Hypertension Past Surgical History: Other Additional Past Surgical Histo: R ovary removed Smoking Status: Current Every Day Smoker Alcohol Use: Occasionally Drug Use: None General Adult EDM: Chief Complaint: SKIN PROBLEM HPI: HPI: Patient is a 30 year old Female who presents with 1 week of a itchy open crusty blister like rash that are sporadic on face medial cheek and forehead and above the right lip. Patient also has spots on her bilateral buttocks and a couple on her arms. Her son has since gotten the same kind of rash. She denies any kind of fever, new lotions new oils new soaps for her or her son. She denies any new detergents. She denies having been out side or around weeds or anything. There is no swelling around the sore and they are not elevated. It does not look to be any drainage at this time. There is no cellulitis. No sores in the mouth. She denies any pain. She has a history of hypertension, diabetes, smoker. Review of Systems: Review of Systems: Constitutional: Denies fever or chills. [] Eyes: Denies change in visual acuity. [] HENT: Denies nasal congestion or sore throat. [] Respiratory: Denies cough or shortness of breath. [] Cardiovascular: Denies chest pain or edema. [] GI: Denies abdominal pain, nausea, vomiting, bloody stools or diarrhea. [] : Denies dysuria. [] Musculoskeletal: Denies back pain or joint pain. [] Integument: Generalized itchy rash. [] Neurologic: Denies headache, focal weakness or sensory changes. [] Endocrine: Denies polyuria or polydipsia. [] Lymphatic: Denies swollen glands. [] Psychiatric: Denies depression or anxiety. [] Heart Score: Risk Factors: Risk Factors: DM, Current or recent (<one month) smoker, HTN, HLP, family history of CAD, obesity. Risk Scores: Score 0 - 3: 2.5% MACE over next 6 weeks - Discharge Home Score 4 - 6: 20.3% MACE over next 6 weeks - Admit for Clinical Observation Score 7 - 10: 72.7% MACE over next 6 weeks - Early Invasive Strategies Allergies: Allergies: Allergies Coded Allergies Type Severity Reaction Last Updated Verified No Known Drug Allergies 01/17/18 No Physical Exam: PE: Constitutional: Well developed, well nourished, no acute distress, non-toxic appearance. [] HENT: Normocephalic, atraumatic, bilateral external ears normal, oropharynx moist, no oral exudates, nose normal. [] Eyes: PERRLA, EOMI, conjunctiva normal, no discharge. [] Neck: Normal range of motion, no tenderness, supple, no stridor. [] Cardiovascular:Heart rate regular rhythm, no murmur [] Lungs & Thorax: Bilateral breath sounds clear to auscultation [] Abdomen: Bowel sounds normal, soft, no tenderness, no masses, no pulsatile masses. [] Skin: Warm, dry, no erythema, generalized itchy, crusty rash to face, bilateral buttocks and bilateral arms that has spread over time. [] Back: No tenderness, no CVA tenderness. [] Extremities: No tenderness, no cyanosis, no clubbing, ROM intact, no edema. [] Neurologic: Alert and oriented X 3, normal motor function, normal sensory function, no focal deficits noted. [] Psychologic: Affect normal, judgement normal, mood normal. [] EKG: EKG: [] Radiology/Procedures: Radiology/Procedures: [] Course & Med Decision Making: Course & Med Decision Making Pertinent Labs and Imaging studies reviewed. (See chart for details) See HPI. Alert and oriented x4. Ambulatory with a steady gait. Speaks in full complete sentences. Afebrile. Patient will be given Keflex and mupirocin cream. This sounds and looks much like impetigo. Patient to follow-up with primary care physician. [] Mina Disclaimer: Mina Disclaimer: This electronic medical record was generated, in whole or in part, using a voice recognition dictation system. Departure Departure Impression: Primary Impression: Rash and nonspecific skin eruption Disposition: HOME, SELF-CARE Condition: STABLE Referrals: UNKNOWN PCP NAME (PCP) Patient Instructions: Impetigo Additional Instructions: Follow-up with primary care physician. Use medications as prescribed. Scripts Mupirocin Calcium (MUPIROCIN CREAM) 15 Gm Cream..g. 1 KALE TP TID for 10 Days, #30 GM 0 Refills Prov: COLT MONTES BLANKET BINDER 02/22/20 Cephalexin (KEFLEX) 500 Mg Capsule 1 CAP PO TID for 7 Days, #21 CAP 0 Refills Prov: OCLT MONTES APRN 02/22/20 Justicifation of Admission Dx: Justifications for Admission: Justification of Admission Dx: N/A COLT MONTES APRN Feb 22, 2020 13:50
[2020-02-22] MEDS ORDERED: DEXAMETHASONE 4 MG TABLET PO ONE (14:00)
[2020-02-22 14:05] VITALS: BP 150/84
== END 2020-02-22 14:05 | disposition home or self-care (01) ==
LOC: ER 13:21
DX: R21 Rash and other nonspecific skin eruption (principal); E11.9 Type 2 diabetes mellitus without complications; I10 Essential (primary) hypertension; F17.200 Nicotine dependence, unspecified, uncomplicated; Z98.890 Other specified postprocedural states
CPT/HCPCS: 99283

== ENCOUNTER 2020-03-22 07:42 | Emergency (ER) | payer OTHER ==
[~2020-03-22] VITALS: Ht 172.7 cm; Wt 143.0 kg
[~2020-03-22 07:42] MED LIST changes: +MUPI15CR8 TP
--- NOTE | 2020-03-22 08:06 | PHYS DOC ---
Past Medical History Past Medical History: Diabetes-Type II, Hypertension Past Surgical History: Other Additional Past Surgical Histo: R ovary removed Smoking Status: Current Every Day Smoker Alcohol Use: Occasionally Drug Use: None General Adult EDM: Chief Complaint: BACK PAIN OR INJURY HPI: HPI: Patient is a 30 year old female who presents with 1 month history of right- sided neck and back pain. Patient works here in [employer] and uses her right arm quite frequently. Patient denies any specific trauma. Patient describes a throbbing moderate in intensity and more severe with range of motion pain in the right side of her upper back and neck and radiates to the lower back. Patient has some intermittent radiation down the right arm and to the right thumb. Patient denies any focal weakness or numbness. Patient denies any recent illnesses such as fevers, chills, cough, vomiting, diarrhea. Review of Systems: Review of Systems: Constitutional: Denies fever or chills. [] Eyes: Denies change in visual acuity. [] HENT: Denies nasal congestion or sore throat. [] Respiratory: Denies cough or shortness of breath. [] Cardiovascular: Denies chest pain or edema. [] GI: Denies abdominal pain, nausea, vomiting, bloody stools or diarrhea. [] : Denies dysuria. [] Musculoskeletal: Complains of neck and upper back pain Integument: Denies rash. [] Neurologic: Denies headache, focal weakness or sensory changes. [] Endocrine: Denies polyuria or polydipsia. [] Lymphatic: Denies swollen glands. [] Psychiatric: Reports depression with intermittent bouts of suicidal ideation Heart Score: Risk Factors: Risk Factors: DM, Current or recent (<one month) smoker, HTN, HLP, family history of CAD, obesity. Risk Scores: Score 0 - 3: 2.5% MACE over next 6 weeks - Discharge Home Score 4 - 6: 20.3% MACE over next 6 weeks - Admit for Clinical Observation Score 7 - 10: 72.7% MACE over next 6 weeks - Early Invasive Strategies Current Medications: Current Medications Ketorolac Tromethamine (Toradol Im) 60 mg 1X ONCE IM Last administered on 03/22/20at 08:32; Start 03/22/20 at 08:15; Stop 03/22/20 at 08:16; Status DC Active Scripts Active Mupirocin Cream (Mupirocin) 15 Gm Cream..g. 1 Dasia TP TID 10 Days Keflex (Cephalexin) 500 Mg Capsule 1 Cap PO TID 7 Days Orphenadrine Citrate 100 Mg Tablet.er 1 Tab PO BID [place] 5-325 Tablet (Acetaminophen/Hydrocodone Bitart) 1 Each Tablet 1 Tab PO PRN Q6HRS PRN Ibuprofen 600 Mg Tablet 600 Mg PO PRN Q6HRS PRN [place] 5-325 Tablet (Acetaminophen/Hydrocodone Bitart) 1 Each Tablet 1 Tab PO Q6HRS Valacyclovir (Valacyclovir Hcl) 1,000 Mg Tablet 1 Tab PO DAILY Proair Hfa (Albuterol Sulfate) 8.5 Gm Hfa.aer.ad 1 Puff INH PRN Q6HRS PRN Zithromax (Azithromycin) 250 Mg Tablet 1 Pkg PO UD Take 2 tablets on day 1 and then 1 tablet each day for the next 4 days as directed Keflex (Cephalexin) 500 Mg Capsule 1 Cap PO BID Tramadol Hcl 50 Mg Tablet 50 Mg PO Q6HRS PRN Zofran (Ondansetron Hcl) 4 Mg Tablet 4 Mg PO PRN TID PRN nausea/vomiting Allergies: Allergies: Allergies Coded Allergies Type Severity Reaction Last Updated Verified No Known Drug Allergies 01/17/18 No Physical Exam: PE: Constitutional: Well developed, well nourished, no acute distress, non-toxic appearance. [] HENT: Normocephalic, atraumatic, bilateral external ears normal, no trismus, nose normal. [] Eyes: PERRLA, EOMI, conjunctiva normal, no discharge. [] Neck: Tender to palpate right side posterior neck Cardiovascular:Heart rate regular rhythm, peripheral pulses are intact cap refill is brisk Lungs & Thorax: Bilateral breath sounds clear, no respiratory distress Abdomen: Bowel sounds normal, soft, no tenderness, no masses, no pulsatile masses. [] Skin: Warm, dry, no erythema, no rash. [] Back: Tenderness along the right trapezius Extremities: No tenderness, no cyanosis, no clubbing, ROM intact, no edema. [] Neurologic: Alert and oriented X 3, normal motor function, normal sensory function, no focal deficits noted. [] Dorsiflexion is intact to the bilateral lower extremity toes. No saddle anesthesia. Neurovascular intact in bilateral upper extremities. Psychologic: Depressed mood without suicidal ideation Current Patient Data: Labs: Laboratory Tests Test 03/22/20 08:15 Bedside Urine HCG, Qualitative Hcg negative Current Medications Medications (Trade) Dose Ordered Sig/Katerin Route PRN Reason Start Time Stop Time Status Last Admin Dose Admin Ketorolac Tromethamine (Toradol Im) 60 mg 1X ONCE IM 03/22/20 08:15 03/22/20 08:16 DC Vital Signs: Vital Signs Date Time Temp Pulse Resp B/P (MAP) Pulse Ox O2 Delivery O2 Flow Rate FiO2 03/22/20 08:11 98.1 90 18 195/102 (133) 98 Room Air 98.1 EKG: EKG: [] Radiology/Procedures: Radiology/Procedures: [] Course & Med Decision Making: Course & Med Decision Making Pertinent Labs and Imaging studies reviewed. (See chart for details) [30-year-old female presents with right-sided back pain has been there for over a month. Patient is neurologically intact. On assessment patient found to be very depressed and tearful. Patient seen by the psychiatric assessment team and deemed appropriate for RSI. Patient is medically stable for this.] [facility] Disclaimer: [facility] Disclaimer: This electronic medical record was generated, in whole or in part, using a voice recognition dictation system. Departure Departure Impression: Primary Impression: Back pain Additional Impression: Depression Disposition: 01 DC HOME SELF CARE/HOMELESS Condition: STABLE Referrals: NO PCP (PCP) Family [facility] [address] [place] [address] [facility] [address] [place] [address] [facility] [address] Patient Instructions: Back Pain, Adult Additional Instructions: EMERGENCY DEPARTMENT GENERAL DISCHARGE INSTRUCTIONS THANK YOU for coming to [facility] Emergency Department (ED) today and trusting us with your care. We trust that you had a positive experience in our Emergency Department. If you wish to speak to the department Management you can contact the paint department supervisor at . YOUR FOLLOW UP INSTRUCTIONS ARE FOLLOWS: Do you have a private doctor? If you do not have a private doctor, please ask for a resource list of physicians or clinics that may be able to assist you with follow up care. The Emergency Physician has interpreted your x-rays. The X-ray specialist will also review them. If there is a change in the findings you will be notified in 48 hours when at all possible. A lab test or lab culture may have been done, your results will be reviewed and you will be notified if you need a change in treatment. ADDITIONAL INSTRUCTIONS AND INFORMATION Your care today has been supervised by a physician who is specially trained in emergency care. Many problems require more than one evaluation for a complete diagnosis and treatment. We recommend that you schedule your follow up appointment as recommended to ensure complete treatment of your illness or injury. If you are unable to obtain follow up care and continue to have a problem, or if your condition worsens we recommend that you return to the ED. We are not able to safely determine your condition over the phone nor are we able to give sound medical advice over the phone. For these safety reasons, if you call for medical advice we will ask you to come to the ED for further evaluation If you have any questions regarding these discharge instructions please call the ED at . SAFETY INFORMATION In the interest of safety, wellness, and injury prevention; we encourage you to wear your seatbelt, if you smoke; quit smoking, and we encourage your family to use protective helmet for bicycling and other sporting events that present an increased risk for head injury. IF YOUR SYMPTOMS WORSEN OR NEW SYMPTOMS DEVELOP, OR YOU HAVE CONCERNS ABOUT YOUR CONDITION; OR IF YOUR CONDITION WORSENS WHILE YOU ARE WAITING FOR YOUR FOLLOW UP APPOINTMENT; EITHER CONTACT YOUR PRIMARY CARE DOCTOR, THE PHYSICIAN WHOSE NAME AND NUMBER YOU WERE GIVEN, OR RETURN TO THE ED IMMEDIATELY. Go to the [facility] for psychiatric stabilization Scripts Ibuprofen (IBUPROFEN) 600 Mg Tablet 600 MG PO PRN Q6HRS PRN for PAIN, #20 TAB take with food or milk Prov: VIDHYA CRISTINA MD 03/22/20 VIDHYA CRISTINA MD Mar 22, 2020 08:06
[2020-03-22] MEDS ORDERED: KETOROLAC 60 MG/2 ML VIAL. IM ONE (08:15)
[2020-03-22] MEDS ORDERED: IBUP-1007 PO (10:09)
[2020-03-22 10:19] VITALS: BP 152/82
== END 2020-03-22 10:47 | disposition home or self-care (01) ==
LOC: ER 07:42
DX: M54.6 Pain in thoracic spine (principal); F32.9 Major depressive disorder, single episode, unspecified; M54.2 Cervicalgia; M54.5 Low back pain; I10 Essential (primary) hypertension; E11.9 Type 2 diabetes mellitus without complications; F17.200 Nicotine dependence, unspecified, uncomplicated
CPT/HCPCS: 81025; 96372; 99284; J1885

== ENCOUNTER → 2020-04-11 | Outpatient (CLI) | payer OTHER ==
[2020-03-22 10:19] VITALS: BP 152/82
--- NOTE | 2020-04-11 13:51 | RAD ---
DATE: 04/11/2020 12:45 PM EXAM: MAMMO RADHA LEAH BILAT HISTORY: 30-year-old woman with a right breast lump for the past month. She reports a family history of breast cancer in multiple family members at relatively young ages. COMPARISON: None. This is a baseline Bilateral CC and MLO views of the breasts were performed. Bilateral breast tomosynthesis was performed in CC and MLO projections. This study was interpreted with the benefit of Computerized Aided Detection (CAD). FINDINGS: Breast Density: FATTY The Breast Parenchyma is primarily fatty replaced. Breast parenchyma level density A. Area of patient reported palpable concern is marked with a BB marker at the inferior posterior right breast. This correlates with a 1.4 cm superficial oval circumscribed low density mass consistent with a benign fatty lesion such as a lipoma or oil cyst. Given its characteristically benign appearance on mammography, additional imaging by ultrasound was not pursued at this visit. No suspicious masses, microcalcifications or architectural distortion is present to suggest malignancy in either breast. The visualized axillae are unremarkable. IMPRESSION: No mammographic evidence of malignancy. BI-RADS CATEGORY: 2 BENIGN FINDING(S) RECOMMENDED FOLLOW-UP: CLIN FOLLOW UP IMAGING CLINICALLY INDICATED Recommend clinical management, which can include biopsy if there are any clinically suspicious findings. Age and risk appropriate annual screening mammography is also recommended, unless clinically indicated sooner based on symptoms or change in physical exam. Discussed with patient. I also recommended that she discuss with her referring physician her concerns regarding her family history of breast cancer and any risk assessment and modification she could pursue. PQRS compliance statement: Patient information was entered into a reminder system with a target due date for the next mammogram. Mammography is a sensitive method for finding small breast cancers, but it does not detect them all and is not a substitute for careful clinical examination. A negative mammogram does not negate a clinically suspicious finding and should not result in delay in biopsying a clinically suspicious abnormality. "Our facility is accredited by the [employer] Mammography Program."
== END ==
LOC: MAMMO 12:48
PROVIDERS: ATTEND Family Medicine
DX: R92.2 Inconclusive mammogram (principal); N63.10 Unspecified lump in the right breast, unspecified quadrant
CPT/HCPCS: 77066; G0279; 77062

== ENCOUNTER → 2020-05-22 | Outpatient (CLI) | payer OTHER | LOC: LAB 12:38 | PROVIDERS: ATTEND Internal Medicine Pulmonary Disease | DX: Z20.828 Contact with and (suspected) exposure to other viral communicable diseases (principal) | CPT/HCPCS: U0003 ==

== ENCOUNTER 2020-08-10 09:41 | Emergency (ER) | payer OTHER ==
[~2020-08-10] VITALS: Ht 172.7 cm; Wt 145.0 kg
--- NOTE | 2020-08-10 10:03 | ED.ADGEN ---
Past Medical History Past Medical History: Diabetes-Type II, Hypertension Past Surgical History: Other Additional Past Surgical Histo: L ovary removed Smoking Status: Current Every Day Smoker Alcohol Use: Occasionally Drug Use: None General Adult EDM: Chief Complaint: NAUSEA/VOMITING/DIARRHA HPI: HPI: Patient is a 30 year old female who arrives ambulatory to the emergency department complaining of lower abdominal pain in addition to nausea and vomiting as well as diarrhea. Patient reports the symptoms been going on intermittently for weeks. Patient also reports that she has had problems with lower abdominal discomfort during this time as well. The patient states she vomits what appears to be bile and has had intermittent bouts of diarrhea. Patient states she is sexually active and engages in unprotected sex however she is unaware of whether or not she is . Patient reports her last. Was almost 1 month ago and she is normally regular. She denies any fevers. She further denies any upper abdominal pain. Additionally she denies any vaginal discharge or bleeding. She is awake, alert and nontoxic-appearing. Review of Systems: Review of Systems: Constitutional: Denies fever or chills. [] Eyes: Denies change in visual acuity. [] HENT: Denies nasal congestion or sore throat. [] Respiratory: Denies cough or shortness of breath. [] Cardiovascular: Denies chest pain or edema. [] GI: Reports nausea with vomiting and diarrhea in addition to lower abdominal pain. Denies bloody stools. [] : Denies dysuria. [] Musculoskeletal: Denies back pain or joint pain. [] Integument: Denies rash. [] Neurologic: Denies headache, focal weakness or sensory changes. [] Endocrine: Denies polyuria or polydipsia. [] Lymphatic: Denies swollen glands. [] Psychiatric: Denies depression or anxiety. [] Allergies: Allergies: Allergies Coded Allergies Type Severity Reaction Last Updated Verified No Known Drug Allergies 01/17/18 No Physical Exam: PE: Constitutional: Well developed, well nourished, no acute distress, non-toxic appearance. [] HENT: Normocephalic, atraumatic, bilateral external ears normal, oropharynx moist, no oral exudates, nose normal. [] Eyes: PERRLA, EOMI, conjunctiva normal, no discharge. [] Neck: Normal range of motion, no tenderness, supple, no stridor. [] Cardiovascular:Heart rate regular rhythm, no murmur [] Lungs & Thorax: Bilateral breath sounds clear to auscultation [] Abdomen: Minimal tenderness of the lower abdomen. There is no guarding north or rebound. Bowel sounds normal, soft, no masses, no pulsatile masses. [] Skin: Warm, dry, no erythema, no rash. [] Back: No tenderness, no CVA tenderness. [] Extremities: No tenderness, no cyanosis, no clubbing, ROM intact, no edema. [] Neurologic: Alert and oriented X 3, normal motor function, normal sensory function, no focal deficits noted. [] Psychologic: Affect normal, judgement normal, mood normal. [] Current Patient Data: Labs: Laboratory Tests Test 08/10/20 10:00 08/10/20 10:10 Urine Collection Type Unknown Urine Color Yellow Urine Clarity Clear Urine pH 5.5 (<5.0-8.0) Urine Specific Castor >=1.030 (1.000-1.030) Urine Protein 30 mg/dL (NEG-TRACE) Urine Glucose (UA) >=1000 mg/dL (NEG) Urine Ketones (Stick) Trace mg/dL (NEG) Urine Blood Small (NEG) Urine Nitrite Negative (NEG) Urine Bilirubin Negative (NEG) Urine Urobilinogen Dipstick 0.2 mg/dL (0.2 mg/dL) Urine Leukocyte Esterase Negative (NEG) Urine RBC Occ /HPF (0-2) Urine WBC Occ /HPF (0-4) Urine Squamous Epithelial Cells Mod /LPF Urine Bacteria 0 /HPF (0-FEW) White Blood Count 10.7 x10^3/uL (4.0-11.0) Red Blood Count 4.93 x10^6/uL (3.50-5.40) Hemoglobin 14.9 g/dL (12.0-15.5) Hematocrit 43.3 % (36.0-47.0) Mean Corpuscular Volume 88 fL (79-100) Mean Corpuscular Hemoglobin 30 pg (25-35) Mean Corpuscular Hemoglobin Concent 34 g/dL (31-37) Red Cell Distribution Width 13.6 % (11.5-14.5) Platelet Count 256 x10^3/uL (140-400) Neutrophils (%) (Auto) 59 % (31-73) Lymphocytes (%) (Auto) 31 % (24-48) Monocytes (%) (Auto) 9 % (0-9) Eosinophils (%) (Auto) 1 % (0-3) Basophils (%) (Auto) 1 % (0-3) Neutrophils # (Auto) 6.3 x10^3/uL (1.8-7.7) Lymphocytes # (Auto) 3.3 x10^3/uL (1.0-4.8) Monocytes # (Auto) 0.9 x10^3/uL (0.0-1.1) Eosinophils # (Auto) 0.1 x10^3/uL (0.0-0.7) Basophils # (Auto) 0.1 x10^3/uL (0.0-0.2) POC Urine HCG, Qualitative Hcg negative (Negative) Sodium Level 132 mmol/L (136-145) L Potassium Level 4.3 mmol/L (3.5-5.1) Chloride Level 95 mmol/L (98-107) L Carbon Dioxide Level 23 mmol/L (21-32) Anion Gap 14 (6-14) Blood Urea Nitrogen 10 mg/dL (7-20) Creatinine 1.3 mg/dL (0.6-1.0) H Estimated GFR (Cockcroft-Gault) 58.2 BUN/Creatinine Ratio 8 (6-20) Glucose Level 473 mg/dL (70-99) H Calcium Level 8.1 mg/dL (8.5-10.1) L Total Bilirubin 0.5 mg/dL (0.2-1.0) Aspartate Amino Transferase (AST) 23 U/L (15-37) Alanine Aminotransferase (ALT) 52 U/L (14-59) Alkaline Phosphatase 116 U/L (46-116) Total Protein 7.3 g/dL (6.4-8.2) Albumin 3.1 g/dL (3.4-5.0) L Albumin/Globulin Ratio 0.7 (1.0-1.7) L Lipase 324 U/L (73-393) Laboratory Tests 08/10/20 10:10 Laboratory Tests 08/10/20 10:10 Vital Signs: Vital Signs Date Time Temp Pulse Resp B/P (MAP) Pulse Ox O2 Delivery O2 Flow Rate FiO2 08/10/20 10:19 97.9 95 18 149/72 (97) 98 Room Air 97.9 EKG: EKG: [] Heart Score: C/O Chest Pain: No Risk Factors: Risk Factors: DM, Current or recent (<one month) smoker, HTN, HLP, family history of CAD, obesity. Risk Scores: Score 0 - 3: 2.5% MACE over next 6 weeks - Discharge Home Score 4 - 6: 20.3% MACE over next 6 weeks - Admit for Clinical Observation Score 7 - 10: 72.7% MACE over next 6 weeks - Early Invasive Strategies Radiology/Procedures: Radiology/Procedures: [] Course & Med Decision Making: Course & Med Decision Making Pertinent Labs and Imaging studies reviewed. (See chart for details) The patient remains awake, alert and in no acute distress. Upon reevaluation the patient's abdomen is soft, nontender or distended. Specifically there is no tenderness to palpation in the right lower quadrant to denote any suspicion for an acute appendicitis. This is in line with the fact the patient is had this pain ongoing for 2 to 3 weeks by her reports. What is significant is the patient is a known diabetic and takes multiple medications for her diabetes however she has been without these medications which are available at her pharmacy for several days. I do question whether or not her abdominal pain may be in relation to her uncontrolled diabetes at this time. Nonetheless I do not believe she is a surgical process unfolding at this time. I have encouraged her to take her medications as prescribed and adhere to a diabetic diet. Should the patient develop any new fevers, worsening pain or intractable vomi ting/diarrhea she has been advised to return to the emergency department. The patient understands and has agreed to do so. She is nontoxic-appearing and resting comfortably now. She is stable for discharge. Dragon Disclaimer: Mina Disclaimer: This electronic medical record was generated, in whole or in part, using a voice recognition dictation system. Departure Departure Impression: Primary Impression: Poorly controlled type 2 diabetes mellitus Additional Impressions: Nausea and vomiting due to hyperglycemia Abdominal pain Disposition: 01 DC HOME SELF CARE/HOMELESS Condition: STABLE Referrals: CYN LORA APRN (PCP) Patient Instructions: 1800 Calorie Diet for Diabetes Meal Planning, Abdominal Pain, Hyperglycemia, Nausea and Vomiting Scripts Hydrocodone/Acetaminophen (Hydrocodone-Acetamin 5-325 mg) 1 Each Tablet 1 EACH PO Q6HRS for 3 Days, #12 TAB Prov: MAIRA NATHAN DO 08/10/20 Ondansetron Hcl (ZOFRAN) 4 Mg Tablet 1 TAB PO PRN Q6-8HRS for nausea for 3 Days, #12 TAB Prov: MAIRA NATHAN DO 08/10/20 Problem Qualifiers MAIRA NATHAN DO Aug 10, 2020 10:03
[2020-08-10 10:20] LABS: BILIRUBIN,URINE NEGATIVE (NEG); CLARITY,URINE CLEAR; COLOR,URINE YELLOW; NITRITE,URINE NEGATIVE (NEG); PH,URINE 5.5 (<5.0-8.0); PROTEIN,URINE 30 mg/dL (NEG-TRACE); UROBILINOGEN,URINE 0.2 mg/dL (0.2 mg/dL)
[2020-08-10 10:23] LABS: BASO # 0.1 x10^3/uL (0.0-0.2); BASO % 1 % (0-3); EOS # 0.1 x10^3/uL (0.0-0.7); EOS % 1 % (0-3); HEMATOCRIT 43.3 % (36.0-47.0); HEMOGLOBIN 14.9 g/dL (12.0-15.5); LYMPH # 3.3 x10^3/uL (1.0-4.8); LYMPH % 31 % (24-48); MEAN CORPUSCULAR HEMOGLOBIN 30 pg (25-35); MEAN CORPUSCULAR HGB CONC 34 g/dL (31-37); MEAN CORPUSCULAR VOLUME 88 fL (79-100); MONO # 0.9 x10^3/uL (0.0-1.1); MONO % 9 % (0-9); NEUT # 6.3 x10^3/uL (1.8-7.7); NEUT % 59 % (31-73); PLATELET COUNT 256 x10^3/uL (140-400); RED BLOOD COUNT 4.93 x10^6/uL (3.50-5.40); RED CELL DISTRIBUTION WIDTH 13.6 % (11.5-14.5); WHITE BLOOD COUNT 10.7 x10^3/uL (4.0-11.0)
[2020-08-10 10:30] VITALS: BP 132/67
[2020-08-10 10:31] LABS: BACTERIA,URINE 0 /HPF (0-FEW); RBC,URINE OCC /HPF (0-2); WBC,URINE OCC /HPF (0-4)
[2020-08-10 10:35] LABS: CALCIUM 8.1 mg/dL (8.5-10.1); CREATININE 1.3 mg/dL (0.6-1.0); GFR 58.2; POTASSIUM 4.3 mmol/L (3.5-5.1)
[2020-08-10 10:46] LABS: ALBUMIN 3.1 g/dL (3.4-5.0); ALBUMIN/GLOBULIN RATIO 0.7 (1.0-1.7); TOTAL BILIRUBIN 0.5 mg/dL (0.2-1.0); TOTAL PROTEIN 7.3 g/dL (6.4-8.2)
[2020-08-10] MEDS ORDERED: ONDA4TAB7 PO (10:55)
[2020-08-10] MEDS ORDERED: HYDR-2759 PO (10:55)
== END 2020-08-10 11:08 | disposition home or self-care (01) ==
LOC: ER 09:41
DX: E11.65 Type 2 diabetes mellitus with hyperglycemia (principal); R11.2 Nausea with vomiting, unspecified; R10.30 Lower abdominal pain, unspecified; R19.7 Diarrhea, unspecified; I10 Essential (primary) hypertension; F17.200 Nicotine dependence, unspecified, uncomplicated; Z98.890 Other specified postprocedural states
CPT/HCPCS: 36415; 80053; 81001; 81025; 83690; 85025; 99283

== ENCOUNTER → 2020-09-25 | Outpatient (CLI) | payer OTHER ==
[~2020-09-25] MED LIST changes: +HYDR-2759 PO
== END ==
LOC: SPEC 09:15
PROVIDERS: ATTEND Nurse Practitioner Gerontology
DX: Z01.419 Encounter for gynecological examination (general) (routine) without abnormal findings (principal); Z20.2 Contact with and (suspected) exposure to infections with a predominantly sexual mode of transmission
CPT/HCPCS: 88175

== ENCOUNTER 2020-10-03 08:08 | Emergency (ER) | payer OTHER ==
[~2020-10-03] VITALS: Ht 172.7 cm; Wt 147.1 kg
[2020-10-03] MEDS ORDERED: LIDOCAINE 2% Multi-Dose 20 ML VIAL. IJ ONE (09:15)
[2020-10-03] MEDS ORDERED: HYDROcodone/APAP 10/325 1 TAB TABLET PO ONE (09:15)
[2020-10-03] MEDS ORDERED: SULF1TAB24 PO (11:34)
[2020-10-03] MEDS ORDERED: HYDR-2759 PO (11:34)
--- NOTE | 2020-10-03 11:35 | PHYS DOC ---
Past Medical History Past Medical History: Diabetes-Type II, Hypertension Past Surgical History: Other Additional Past Surgical Histo: L ovary removed, tumor removal Smoking Status: Current Some Day Smoker Alcohol Use: Occasionally Drug Use: None General Adult EDM: Chief Complaint: ABSCESS HPI: HPI: Patient is a 30 year old female who presented to ER for evaluation of a lesion on the left groin area that been there for a week. The lesion became painful this morning so she came here for evaluation. Patient denies any fever, no nausea vomiting. Patient denies any abdominal pain, no chest pain, no trouble breathing. Patient is up-to-date on her tetanus vaccination status. Review of Systems: Review of Systems: Constitutional: Denies fever or chills. [] Eyes: Denies change in visual acuity. [] HENT: Denies nasal congestion or sore throat. [] Respiratory: Denies cough or shortness of breath. [] Cardiovascular: Denies chest pain or edema. [] GI: Denies abdominal pain, nausea, vomiting, bloody stools or diarrhea. [] : Denies dysuria. [] Musculoskeletal: Denies back pain or joint pain. [] Integument: Positive for skin lesion on left inner thigh area closer to the perigenital area. Neurologic: Denies headache, focal weakness or sensory changes. [] Endocrine: Denies polyuria or polydipsia. [] Lymphatic: Denies swollen glands. [] Psychiatric: Denies depression or anxiety. [] Heart Score: C/O Chest Pain: N/A Risk Factors: Risk Factors: DM, Current or recent (<one month) smoker, HTN, HLP, family history of CAD, obesity. Risk Scores: Score 0 - 3: 2.5% MACE over next 6 weeks - Discharge Home Score 4 - 6: 20.3% MACE over next 6 weeks - Admit for Clinical Observation Score 7 - 10: 72.7% MACE over next 6 weeks - Early Invasive Strategies Current Medications: Current Medications Medications (Trade) Dose Ordered Sig/Katerin Start Time Stop Time Status Last Admin Dose Admin Acetaminophen/ Hydrocodone Bitart (Lortab 10/325) 1 tab 1X ONCE 10/03/20 09:15 10/03/20 09:16 DC 10/03/20 10:01 1 TAB Lidocaine HCl (Lidocaine 2% 20ml Vial) 20 ml 1X ONCE 10/03/20 09:15 10/03/20 09:16 DC 10/03/20 10:00 20 ML Allergies: Allergies: Allergies Coded Allergies Type Severity Reaction Last Updated Verified No Known Drug Allergies 10/03/20 No Physical Exam: PE: Constitutional: Well developed, well nourished, no acute distress, non-toxic appearance. [] HENT: Normocephalic, atraumatic, bilateral external ears normal, oropharynx moist, no oral exudates, nose normal. [] Eyes: PERRLA, EOMI, conjunctiva normal, no discharge. [] Neck: Normal range of motion, no tenderness, supple, no stridor. [] Cardiovascular:Heart rate regular rhythm, no murmur [] Lungs & Thorax: Bilateral breath sounds clear to auscultation [] Abdomen: Bowel sounds normal, soft, no tenderness, no masses, no pulsatile masses. [] Skin: Warm, dry, no erythema, There is a tender, indurated lesion on the inner part of left thigh close to perigenital area, no crepitus. The indurated area is about 3 cm by 3 cm. No open wound. Back: No tenderness, no CVA tenderness. [] Extremities: No tenderness, no cyanosis, no clubbing, ROM intact, no edema. [] Neurologic: Alert and oriented X 3, normal motor function, normal sensory function, no focal deficits noted. [] Psychologic: Affect normal, judgement normal, mood normal. [] Current Patient Data: Vital Signs: Vital Signs Date Time Temp Pulse Resp B/P (MAP) Pulse Ox O2 Delivery O2 Flow Rate FiO2 10/03/20 10:02 98 20 167/91 (116) 98 Room Air 10/03/20 08:48 98.4 98.4 EKG: EKG: [] Radiology/Procedures: Radiology/Procedures: Indication: abscess Procedure: The patient was positioned appropriately. Local anesthesia was done with 20 ml of 2% plain lidocaine. An incision was then made over the apex of the lesion by # 11 scapel, small amount of purulent material was expressed. The drainage cavity was irrigated. The wound was covered with gauze. The patient tolerated the procedure well. Complications: none.[] Course & Med Decision Making: Course & Med Decision Making Pertinent Labs and Imaging studies reviewed. (See chart for details) [] Dragon Disclaimer: Dragon Disclaimer: This electronic medical record was generated, in whole or in part, using a voice recognition dictation system. Departure Departure Impression: Primary Impression: Abscess Disposition: 01 HOME / SELF CARE / HOMELESS Condition: STABLE Referrals: CYN LORA APRN (PCP) follow up with your doctor in 2 days for reevaluation Patient Instructions: Abscess Additional Instructions: Thank you for visiting our Emergency Department. We appreciate you trusting us with your care. If any additional problems come up don't hesitate to return to visit us. Please follow up with your primary care provider so they can plan additional care if needed and know about the problem that you had. If symptoms worsen come back to the Emergency Department. Any concerning symptoms that start such as chest pain, shortness of air, weakness or numbness on one side of the body, running high fevers or any other concerning symptoms return to the ER. Scripts Hydrocodone/Acetaminophen (Hydrocodone-Acetamin 5-325 mg) 1 Each Tablet 1 EACH PO Q6HRS PRN for PAIN, #12 TAB Prov: CHASE PAYNE DO 10/03/20 Sulfamethoxazole/Trimethoprim (BACTRIM DS TABLET) 1 Each Tablet 1 TAB PO BID for 10 Days, #20 TAB 0 Refills Prov: CHASE PAYNE DO 10/03/20 CHASE PAYNE DO October 03, 2020 11:35
[2020-10-03 12:24] VITALS: BP 171/79
== END 2020-10-03 12:25 | disposition home or self-care (01) ==
LOC: ER 08:08
DX: L02.416 Cutaneous abscess of left lower limb (principal); E11.9 Type 2 diabetes mellitus without complications; F17.200 Nicotine dependence, unspecified, uncomplicated; I10 Essential (primary) hypertension
CPT/HCPCS: 10060; 99283

== ENCOUNTER → 2020-11-01 | Outpatient (CLI) | payer OTHER ==
[2020-10-03 12:24] VITALS: BP 171/79
[~2020-11-01] MED LIST changes: +SULF1TAB24 PO
[2020-11-01 08:12] LABS: BASO # 0.1 x10^3/uL (0.0-0.2); BASO % 1 % (0-3); EOS # 0.1 x10^3/uL (0.0-0.7); EOS % 2 % (0-3); HEMATOCRIT 40.5 % (36.0-47.0); HEMOGLOBIN 13.7 g/dL (12.0-15.5); LYMPH # 2.9 x10^3/uL (1.0-4.8); LYMPH % 43 % (24-48); MEAN CORPUSCULAR HEMOGLOBIN 30 pg (25-35); MEAN CORPUSCULAR HGB CONC 34 g/dL (31-37); MEAN CORPUSCULAR VOLUME 88 fL (79-100); MONO # 0.5 x10^3/uL (0.0-1.1); MONO % 8 % (0-9); NEUT # 3.2 x10^3/uL (1.8-7.7); NEUT % 47 % (31-73); PLATELET COUNT 266 x10^3/uL (140-400); RED BLOOD COUNT 4.61 x10^6/uL (3.50-5.40); RED CELL DISTRIBUTION WIDTH 13.1 % (11.5-14.5); WHITE BLOOD COUNT 6.8 x10^3/uL (4.0-11.0)
[2020-11-01 08:52] LABS: ALBUMIN 3.3 g/dL (3.4-5.0); ALBUMIN/GLOBULIN RATIO 0.9 (1.0-1.7); CALCIUM 8.7 mg/dL (8.5-10.1); CREATININE 0.9 mg/dL (0.6-1.0); TOTAL PROTEIN 6.8 g/dL (6.4-8.2)
[2020-11-01 08:53] LABS: POTASSIUM 3.6 mmol/L (3.5-5.1); TOTAL BILIRUBIN 0.4 mg/dL (0.2-1.0)
[2020-11-02 00:12] LABS: HEMOGLOBIN A1C 10.7 % (4.8-5.6)
== END ==
LOC: LAB 07:38
PROVIDERS: ATTEND Family Medicine
DX: I10 Essential (primary) hypertension (principal); E11.65 Type 2 diabetes mellitus with hyperglycemia; R10.84 Generalized abdominal pain
CPT/HCPCS: 36415; 80053; 82150; 83036; 83690; 85025

== ENCOUNTER 2021-02-12 07:15 | Emergency (ER) | payer OTHER ==
[~2021-02-12] VITALS: Ht 172.7 cm; Wt 150.0 kg
[2021-02-12 07:56] VITALS: BP 166/81
[2021-02-12] MEDS ORDERED: DOXY100C3 PO (08:07)
--- NOTE | 2021-02-12 08:08 | PHYS DOC ---
Past Medical History Past Medical History: Diabetes-Type II, Hypertension Past Surgical History: Other Additional Past Surgical Histo: L ovary removed, tumor removal Smoking Status: Current Some Day Smoker Alcohol Use: None Drug Use: None General Adult EDM: Chief Complaint: INSECT BITE HPI: HPI: Patient is a 30 year old female with history of diabetes who presents with skin swelling and redness starting this morning. She thinks she was bit by an insect. Did not see an insect bite her. She noticed a small amount of drainage this morning. The area is located on the left forearm. Does not recall any trauma to the area. No fevers or chills. States that it is quite painful. Review of Systems: Review of Systems: Constitutional: Denies fever or chills. [] Eyes: Denies change in visual acuity. [] HENT: Denies nasal congestion or sore throat. [] Respiratory: Denies cough or shortness of breath. [] Cardiovascular: Denies chest pain or edema. [] GI: Denies abdominal pain, nausea, vomiting, bloody stools or diarrhea. [] : Denies dysuria. [] Musculoskeletal: Denies back pain or joint pain. [] Integument: Left forearm rash Neurologic: Denies headache, focal weakness or sensory changes. [] Endocrine: Denies polyuria or polydipsia. [] Lymphatic: Denies swollen glands. [] Psychiatric: Denies depression or anxiety. [] Heart Score: C/O Chest Pain: No Risk Factors: Risk Factors: DM, Current or recent (<one month) smoker, HTN, HLP, family history of CAD, obesity. Risk Scores: Score 0 - 3: 2.5% MACE over next 6 weeks - Discharge Home Score 4 - 6: 20.3% MACE over next 6 weeks - Admit for Clinical Observation Score 7 - 10: 72.7% MACE over next 6 weeks - Early Invasive Strategies Allergies: Allergies: Allergies Coded Allergies Type Severity Reaction Last Updated Verified No Known Drug Allergies 10/03/20 No Physical Exam: PE: Constitutional: Well developed, well nourished, no acute distress, non-toxic appearance. [] HENT: Normocephalic, atraumatic, bilateral external ears normal, oropharynx moist, no oral exudates, nose normal. [] Eyes: PERRLA, EOMI, conjunctiva normal, no discharge. [] Neck: Normal range of motion, no tenderness, supple, no stridor. [] Cardiovascular:Heart rate regular rhythm, no murmur [] Lungs & Thorax: Bilateral breath sounds clear to auscultation [] Abdomen: Bowel sounds normal, soft, no tenderness, no masses, no pulsatile masses. [] Skin: Left forearm with a small amount of purulent drainage from a pinpoint area with surrounding erythema and induration. Tender to the touch. Back: No tenderness, no CVA tenderness. [] Extremities: No tenderness, no cyanosis, no clubbing, ROM intact, no edema. [] Neurologic: Alert and oriented X 3, normal motor function, normal sensory function, no focal deficits noted. [] Psychologic: Affect normal, judgement normal, mood normal. [] Current Patient Data: Vital Signs: Vital Signs Date Time Temp Pulse Resp B/P (MAP) Pulse Ox O2 Delivery O2 Flow Rate FiO2 02/12/21 07:56 98.9 30 16 166/81 (109) 98 Room Air 98.9 EKG: EKG: [] Radiology/Procedures: Radiology/Procedures: [] Course & Med Decision Making: Course & Med Decision Making Pertinent Labs and Imaging studies reviewed. (See chart for details) Patient a 30-year-old female who presents with left arm redness and swelling. Consistent with cellulitis. [id number] ultrasound did not show evidence of drainable abscess. We will treat with doxycycline and advised PCP follow-up later this week. Return precautions given. Dragon Disclaimer: Dragon Disclaimer: This electronic medical record was generated, in whole or in part, using a voice recognition dictation system. Departure Departure Impression: Primary Impression: Cellulitis Disposition: 01 HOME / SELF CARE / HOMELESS Condition: STABLE Referrals: Mayi MCNEIL MD (PCP) Patient Instructions: Cellulitis Additional Instructions: It looks like you have an infection in your left arm. Please take antibiotics as prescribed. Please follow-up to primary care doctor later this week to ensure that your symptoms are improving. If you develop high fevers, shaking chills, or other new/concerning symptoms please return to the emergency department for reevaluation. For pain tylenol and ibuprofen are best used on a schedule. Please alternate between the two. -Tylenol 1000 mg every 6 hours (do not exceed 4000 mg in one day) -Ibuprofen 400 mg every 6 hours. Take with food. Do not take for more than 1 week. Scripts Doxycycline Hyclate (DOXYCYCLINE HYCLATE) 100 Mg Capsule 1 CAP PO BID for 7 Days, #14 CAP Prov: TEMO ROE MD 02/12/21 TEMO ROE MD Feb 12, 2021 08:08
== END 2021-02-12 08:15 | disposition home or self-care (01) ==
LOC: ER 07:15
DX: L03.114 Cellulitis of left upper limb (principal); E11.9 Type 2 diabetes mellitus without complications; I10 Essential (primary) hypertension; F17.200 Nicotine dependence, unspecified, uncomplicated
CPT/HCPCS: 99283

== ENCOUNTER → 2021-05-14 | Outpatient (CLI) | payer OTHER ==
[~2021-05-14] MED LIST changes: +DOXY100C3 PO
[2021-05-14 09:45] LABS: ALBUMIN 3.2 g/dL (3.4-5.0); ALBUMIN/GLOBULIN RATIO 0.8 (1.0-1.7); CALCIUM 8.7 mg/dL (8.5-10.1); CREATININE 0.8 mg/dL (0.6-1.0); GFR 101.2; TOTAL BILIRUBIN 0.3 mg/dL (0.2-1.0); TOTAL PROTEIN 7.4 g/dL (6.4-8.2)
[2021-05-14 23:32] LABS: HEMOGLOBIN A1C 11.4 % (4.8-5.6)
== END ==
LOC: LAB 08:43
PROVIDERS: ATTEND Family Medicine
DX: I11.0 Hypertensive heart disease with heart failure (principal); E11.29 Type 2 diabetes mellitus with other diabetic kidney complication
CPT/HCPCS: 36415; 80053; 83036

== ENCOUNTER → 2021-05-21 | Emergency (ER) | payer OTHER | END | disposition left against medical advice (07) | LOC: ER 12:31 | DX: R05.9 Cough, unspecified (principal); R11.10 Vomiting, unspecified; Z53.21 Procedure and treatment not carried out due to patient leaving prior to being seen by health care provider ==

== ENCOUNTER → 2021-05-22 | Outpatient (CLI) | payer OTHER | LOC: LAB 05-21 16:35 | PROVIDERS: ATTEND Internal Medicine Pulmonary Disease | DX: U07.1 COVID-19 (principal); R09.81 Nasal congestion; R68.89 Other general symptoms and signs; J02.9 Acute pharyngitis, unspecified | CPT/HCPCS: U0003; U0005 ==

== ENCOUNTER → 2021-05-30 | Outpatient (CLI) | payer OTHER ==
--- NOTE | 2021-05-30 09:33 | RAD ---
Right upper quadrant abdominal ultrasound 05/30/2021 INDICATION: Abdominal pain. COMPARISON STUDY: None available. Discussion: Ultrasound evaluation of the right upper quadrant was performed. Static images are submit lilian to PACS. The pancreas, aorta, and IVC are poorly visualized. Portions of the liver obscured. Visu alized liver is significantly and diffusely echogenic suggesting hepatic steatosis. The liver is enla rged measuring 22 cm longitudinally. No definitive focal lesion is seen. The gallbladder is somewhat poorly visualized without evidence of wall thickening, stones, or sludge. The common bile duct is vis ualized and appears be nondilated measuring approximately 4 to 5 mm. The right kidney is unremarkable measuring 14 cm longitudinally. IMPRESSION: 1. Hepatomegaly and hepatic steatosis 2. Unremarkable sonographic appearance of the gallbladder Electronically signed by: Jeovanny Brown MD (05/30/2021 9:30 AM) [id number]
== END ==
LOC: US 06:43
PROVIDERS: ATTEND Family Medicine
DX: R16.0 Hepatomegaly, not elsewhere classified (principal); K76.0 Fatty (change of) liver, not elsewhere classified
CPT/HCPCS: 76705

== ENCOUNTER 2021-06-07 12:07 | Emergency (ER) | payer OTHER ==
[~2021-06-07] VITALS: Ht 172.7 cm; Wt 138.6 kg
[2021-06-07 12:07] VITALS: BP 170/88
[2021-06-07] MEDS ORDERED: KETOROLAC 60 MG/2 ML VIAL. IM ONE (13:15)
--- NOTE | 2021-06-07 13:40 | PHYS DOC ---
Past Medical History Past Medical History: Diabetes-Type II, Hypertension Past Surgical History: Other Additional Past Surgical Histo: L ovary removed, tumor removal Smoking Status: Current Some Day Smoker Alcohol Use: None Drug Use: None General Adult EDM: Chief Complaint: KNEE INJURY HPI: HPI: Patient is a 31-year-old female who presents to the emergency department with complaints of pain to the left knee that started yesterday. 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 Patient reports she initially did not feel any pain but shortly afterwards it started feeling a burning sensation and experienced sharp pains in the knee joint area near the 11 o'clock position of the kneecap. Denies applying ice packs or other none pharmacological pain techniques, denies using Anjum wraps or immobilizers, denies taking [id number] prescription medications for her pain. Patient reports she continued work yesterday, reports today at work with continual discomfort with sharp pains while ambulating that she rates a 10 out of 10, decreases to a 4 or 5 out of 10 burning sensation at rest. Patient denies locking of the knee joint. Patient reports she did not fall, there is no blunt trauma to the knee. Patient denies injuring her left knee in the past. Patient reports her last menstrual cycle was over a year ago, reports being on Depo-Provera control. Patient denies other physical complaints or physical concerns. Review of Systems: Review of Systems: 14 body systems of review of systems have been reviewed. See HPI for pertinent positives and negative responses, otherwise all other systems are negative, nonpertinent or noncontributory. Constitutional: Negative except as outlined in HPI above. Skin: Negative except as outlined in HPI above. Eyes: Negative except as outlined in HPI above. HENT: Negative except as outlined in HPI above. Respiratory: Negative except as outlined in HPI above. Cardiovascular: Negative except as outlined in HPI above. GI: Negative except as outlined in HPI above. : Negative except as outlined in HPI above. Musculoskeletal: Negative except as outlined in HPI above. Integument: Negative except as outlined in HPI above. Neurologic: Negative except as outlined in HPI above. Endocrine: Negative except as outlined in HPI above. Lymphatic: Negative except as outlined in HPI above. Psychiatric: Negative except as outlined in HPI above. Heart Score: C/O Chest Pain: No Risk Factors: Risk Factors: DM, Current or recent (<one month) smoker, HTN, HLP, family hist ory of CAD, obesity. Risk Scores: Score 0 - 3: 2.5% MACE over next 6 weeks - Discharge Home Score 4 - 6: 20.3% MACE over next 6 weeks - Admit for Clinical Observation Score 7 - 10: 72.7% MACE over next 6 weeks - Early Invasive Strategies Current Medications: Current Medications Medications (Trade) Dose Ordered Sig/Katerin Start Time Stop Time Status Last Admin Dose Admin Ketorolac Tromethamine (Toradol Im) 60 mg 1X ONCE 06/07/21 13:15 06/07/21 13:16 DC Allergies: Allergies: Allergies Coded Allergies Type Severity Reaction Last Updated Verified No Known Drug Allergies 10/03/20 No Physical Exam: PE: Constitutional: Well developed, well nourished, no acute distress, non-toxic appearance. 31-year-old female in no apparent distress. HENT: Normocephalic, atraumatic. Eyes: Conjunctiva normal, no discharge. Neck: Normal range of motion, no stridor. Cardiovascular: No cyanosis appreciated, distal cap refill less than 2 seconds. Lungs & Thorax: Patient is in no respiratory distress, no audible adventitious lung sounds appreciated. Abdomen: Nontender, no abnormalities noted. Skin: Warm, dry, no erythema, no rash. [] Back: No tenderness, no deformities. Extremities: No tenderness, no cyanosis, no clubbing, ROM intact, no edema. Except for left lower extremity, patient does have antalgic gait with ambulation favoring left lower extremity. No swelling of the knee joint appreciated, no ecchymosis, skin is intact, no pain appreciated with palpation to the lateral or medial or posterior knee structures, mild pain with palpation over patella near 11 o'clock position that extends approximately 8 cm superior medial muscular skeletal structures. Patient does complain of pain at rest, full passive range of motion without locking or clicking sensation. Patient can extend and flex knee fully. No laxity of the left knee joint appreciated during anterior drawer/Sarai's/varus/valgus test, however patient is morbidly obese. Distal cap refill less than 2 seconds, no complaint of paresthesias. Full range of motion of hip and ankle joints without eliciting pain. Neurologic: Alert and oriented X 3, normal motor function, normal sensory function, no focal deficits noted. Psychologic: Affect normal, judgement normal, mood normal. EKG: EKG: [] Radiology/Procedures: Radiology/Procedures: REASON: knee pain after feelin pop sensation PROCEDURE: KNEE LEFT 4V XR KNEE _4 VIEWS WITH PATELLA_LT History: Knee pain Comparison: None. Technique: 4 views of the left knee. Findings: Osseous mineralization is normal. No acute fracture or dislocaton. Minimal degenerative changes with small tricompartmental osteophytes. No significant joint space narrowing. No joint effusion. No focal soft tissue swelling. Impression: 1. No acute osseous abnormality of the left knee. Electronically signed by: Quinton Jorge MD (06/07/2021 1:41 PM) [facility] Course & Med Decision Making: Course & Med Decision Making Pertinent Labs and Imaging studies reviewed. (See chart for details) 31-year-old female, vital signs reviewed, presents emergency department concerning left knee pain after initial injury at work yesterday at ap proximately 1030. Physical examination concerning for possible knee injury, for [place] knee rules will order x-ray of left knee, will give ketorolac injection for pain, ice packs, elevation, will reevaluate pending radiologist interpretation of x-ray. X-ray of the left knee nonconcerning for acute fracture dislocation joint space narrowing or effusion, there was no noted soft tissue swelling on x-ray. With patient's explanation of events, suspicious for knee sprain, will apply Anjum wrap, knee immobilization, crutches with nonweightbearing until follow-up with primary care provider or orthopedic surgeon. Upon reevaluation of the patient, patient reports pain medication and ice pack application with elevation has reduced her knee pain at rest from a 5 out of 10 down to a 2 or 3 out of 10. Discussed with patient RICE therapy, knee immobilization with Anjum wrap's, crutches nonweightbearing, strict follow-up with primary care or orthopedic surgeon this week, will give recommendation for orthopedic surgeon, this injury happened while patient was at work, discussed with patient strict follow-up with her work comp/employee health prior to returning to work. Patient reports she does not want days off of work as she feels she can perform her duties on a light-duty basis. Discussed with patient we will write work excuse for light duty restrictions for approximately 5 days pending primary care/orthopedic surgeon examination and recommendations. The patient's left lower extremity remains neurovascular intact. Patient gave verbal understanding of and is amenable to ED discharge planning. Discussed with the patient all findings and diagnostic testing as well as the need to follow-up with their primary care provider for further evaluation and treatment or return to the ED if any new or worsening symptoms. Strict return precautions were also discussed at length, the patient voiced understanding and agreement with the discharge planning. The patient was nontoxic in appearance, in no apparent distress, and hemodynamically stable at the time of disposition. Dragon Disclaimer: Buy.On.Social Disclaimer: This electronic medical record was generated, in whole or in part, using a voice recognition dictation system. Departure Departure Impression: Primary Impression: Left knee sprain Qualified Codes: S83.92XA - Sprain of unspecified site of left knee, initial encounter Disposition: HOME / SELF CARE / HOMELESS Condition: GOOD Referrals: Mayi MCNEIL MD (PCP) ISAIAS FRANKLIN II, MD Patient Instructions: Knee Immobilization, Knee Sprain, Knee Wraps (Elastic Bandage) and RICE Additional Instructions: You were seen today in the emergency department after a reported knee injury ye sterday at work. Your x-ray did not show any concerning findings for fluid on the knee or broken bones. As we discussed, I suspect you strained your knee during the work actions you described when the initial pain occurred. As we discussed please use RICE therapy, this is an acronym for rest, ice, compression, elevation. Please use ice packs 30 minutes on and 30 minutes off to your sore knee area for the next 48 to 72 hours while awake. An Anjum wrap and knee immobilizer has been applied, please use when ambulating while you are awake. You were also given crutches with instructions. Please use crutches during ambulation so that you do not bear weight on the left leg. Please follow-up with your primary care physician this week. I have provided a orthop edic surgeon to follow-up with for ongoing evaluation of your knee injury and pain. Dr. Franklin. Please call today or tomorrow for an appointment for reevaluation. Follow-up with your work comp/employee health today or tomorrow to let them know of this injury. I have prescribed you a regimen of ibuprofen to use for discomfort. Please use as directed. Please return to the emergency department for worsening symptoms or other concerns. Thank you for visiting our Emergency Department. It was a pleasure taking care of you today in the emergency department and we appreciate you trusting us with your care. If any additional problems come up don't hesitate to return to visit us. Please follow up with your primary care provider so they can plan additional care if needed and know about the problem that you had. If symptoms worsen come back to the Emergency Department. Any concerning symptoms that start such as chest pain, shortness of air, weakness or numbness on one side of the body, running high fevers or any other concerning symptoms return to the ER. EMERGENCY DEPARTMENT GENERAL DISCHARGE INSTRUCTIONS Thank you for coming to [facility] Emergency Department (ED) today and trusting us with you care. We trust that you had a positive experience in our Emergency Department. If you wish to speak to the department management, you may call the Director at [phone]. YOUR FOLLOW UP INSTRUCTIONS ARE FOLLOWS: 1. Do you have a private Doctor? If you do not have a private doctor, please ask for a resource list of physicians or clinics that may be able to assist you with follow up care. 2. The Emergency Physicain has interpreted your x-rays. The X-Ray specialist will also review them. If there is a change in the findings, you will be notified in 48 hours when at all possible. 3. A lab test or culture has been done, your results will be reviewed and you will be notified if you need a change in treatment. ADDITIONAL INSTRUCTIONS AND INFORMATION: 1. Your care today has been supervised by a physician who is specially trained in emergency care. Many problems require more than one evaluation for a complete diagnosis and treatment. We recommend that you schedule your follow up appointment as recommended to ensure complete treatment of you illness or injury. If you are unable to obtain follow up care and continue to have a problem, or if your condition worsens, we recommend that you return to the ED. 2. We are not able to safely determine your condition over the phone nor are we able to give sound medical advice over the phone. For these safety reasons, if you call for medical advice we will ask you to come to the ED for further evaluation. 3. If you have any questions regarding these discharge instructions please call the ED at [phone]. SAFETY INFORMATION: In the interest of safety, wellness, and injury prevention; we encourage you to wear your sealbelt, if you smoke; quite smoking, and we encourage family to use a protective helmet for bicycling and other sporting events that present an increased risk for head injury. IF YOUR SYMPTOMS WORSEN OR NEW SYMPTOMS DEVELOP, OR YOU HAVE CONCERNS ABOUT YOUR CONDITION; OR IF YOUR CONDITION WORSENS WHILE YOU ARE WAITING FOR YOUR FOLLOW UP APPOINTMENT; EITHER CONTACT YOUR PRIMARY CARE DOCTOR, THE PHYSICIAN WHOSE NAME AND NUMBER YOU WERE GIVEN, OR RETURN TO THE ED IMMEDIATELY. Scripts Ibuprofen (IBUPROFEN) 600 Mg Tablet 600 MG PO PRN Q6HRS PRN for INFLAMMATION, #30 TAB 0 Refills Prov: TEMI REYNOLDS APRN 06/07/21 TEMI REYNOLDS APRN Jun 07, 2021 13:40
--- NOTE | 2021-06-07 13:44 | RAD ---
XR KNEE _4 VIEWS WITH PATELLA_LT History: Knee pain Comparison: None. Technique: 4 views of the left knee. Findings: Osseous mineralization is normal. No acute fracture or dislocaton. Minimal degenerative changes with small tricompartmental osteophytes. No significant joint space narrowing. No joint effusion. No focal soft tissue swelling. Impression: 1. No acute osseous abnormality of the left knee. Electronically signed by: Quinton Jorge MD (06/07/2021 1:41 PM) [facility]
[2021-06-07] MEDS ORDERED: IBUP-1007 PO (14:30)
== END 2021-06-07 15:09 | disposition home or self-care (01) ==
LOC: ER 12:07
DX: S83.92XA Sprain of unspecified site of left knee, initial encounter (principal); E11.9 Type 2 diabetes mellitus without complications; I10 Essential (primary) hypertension; F17.200 Nicotine dependence, unspecified, uncomplicated; X50.9XXA Other and unspecified overexertion or strenuous movements or postures, initial encounter; Y93.89 Activity, other specified; Y92.89 Other specified places as the place of occurrence of the external cause; Y99.8 Other external cause status
CPT/HCPCS: 29505; 73564; 99283; J1885; A6450

== ENCOUNTER → 2021-07-24 | Outpatient (CLI) | payer OTHER ==
[2021-07-24 08:29] LABS: ALBUMIN 3.2 g/dL (3.4-5.0); DIRECT BILIRUBIN 0.1 mg/dL (0.0-0.2); TOTAL BILIRUBIN 0.1 mg/dL (0.2-1.0); TOTAL PROTEIN 6.6 g/dL (6.4-8.2)
== END ==
LOC: LAB 07:28
PROVIDERS: ATTEND Internal Medicine Gastroenterology
DX: R84.5 Abnormal microbiological findings in specimens from respiratory organs and thorax (principal)
CPT/HCPCS: 36415; 80076; 86706; 86803; 87340

== ENCOUNTER → 2021-09-05 | Outpatient (CLI) | payer OTHER ==
[2021-09-05 12:41] LABS: BASO # 0.1 x10^3/uL (0.0-0.2); BASO % 1 % (0-3); EOS # 0.1 x10^3/uL (0.0-0.7); EOS % 1 % (0-3); HEMATOCRIT 43.5 % (36.0-47.0); HEMOGLOBIN 14.5 g/dL (12.0-15.5); LYMPH # 2.8 x10^3/uL (1.0-4.8); LYMPH % 32 % (24-48); MEAN CORPUSCULAR HEMOGLOBIN 30 pg (25-35); MEAN CORPUSCULAR HGB CONC 33 g/dL (31-37); MEAN CORPUSCULAR VOLUME 88 fL (79-100); MONO # 0.6 x10^3/uL (0.0-1.1); MONO % 7 % (0-9); NEUT # 5.3 x10^3/uL (1.8-7.7); NEUT % 60 % (31-73); PLATELET COUNT 267 x10^3/uL (140-400); RED BLOOD COUNT 4.92 x10^6/uL (3.50-5.40); RED CELL DISTRIBUTION WIDTH 13.2 % (11.5-14.5); WHITE BLOOD COUNT 8.8 x10^3/uL (4.0-11.0)
[2021-09-05 13:19] LABS: ALBUMIN 3.6 g/dL (3.4-5.0); ALBUMIN/GLOBULIN RATIO 0.9 (1.0-1.7); CALCIUM 9.1 mg/dL (8.5-10.1); GFR 78.2; POTASSIUM 4.1 mmol/L (3.5-5.1); TOTAL BILIRUBIN 0.4 mg/dL (0.2-1.0); TOTAL PROTEIN 7.4 g/dL (6.4-8.2)
--- NOTE | 2021-09-05 13:50 | RAD ---
AP and Lateral Views of the Chest 09/05/2021 12:39 PM Indication: Wheezing: Comparison: Chest radiograph June 25, 2018 Findings: There is no focal consolidation or infiltrate identified. The cardiomediastinal silhouette is within normal limits. There is no evidence of pneumothorax or pleural effusion. No acute osseous a bnormalities are identified. Impression: No evidence of acute cardiopulmonary process. Electronically signed by: Jeovanny Brown MD (09/05/2021 1:47 PM) [id number]
[2021-09-06 00:13] LABS: HEMOGLOBIN A1C 10.2 % (4.8-5.6)
== END ==
LOC: RAD 11:54
PROVIDERS: ATTEND Family Medicine
DX: I10 Essential (primary) hypertension (principal); E11.29 Type 2 diabetes mellitus with other diabetic kidney complication; R06.2 Wheezing
CPT/HCPCS: 36415; 71046; 80053; 83036; 85025